=== PATIENT | female | born 1960 | race Caucasian/White ===

== ENCOUNTER 2016-09-11 19:22 | Inpatient (IN) | payer MEDICAID ==
[~2016-09-11] VITALS: Ht 157.5 cm; Wt 128.7 kg
[~2016-09-11 19:22] MED LIST: AMLO5TAB2 PO; ASPI-496 PO; ASPI-515 PO; ATOR80TA75 PO; CARV6.252 PO; CLOP75TA PO; ERGO500017 PO; FURO40TA6 PO; INSU100V10 SQ; INSU100V12 SQ; INSU100V13 SQ-INSULIN; ISOS30TA8 PO; LISI30TA4 PO; LOSA50TA6 PO; METO25TA35 PO; METO50TA82 PO; NITR0.4T8 SL; NPH,100V4 SQ-INSULIN; OMEP-110 PO; ONDA4TAB10 PO; OXYC1TAB8 PO; POTA20PA8 PO; SIMV5TAB5 PO
[2016-09-11 20:21] LABS: BLOOD UREA NITROGEN 33 mg/dL (7-18)
[2016-09-11 20:27] LABS: IS PT STATUS REG ER OR PRE ER? YES
[2016-09-11] MEDS ORDERED: HYDROmorphone 1 MG/ML, 1ML IM STA (20:40)
[2016-09-11] MEDS ORDERED: HYDROmorphone 1 MG/ML, 1ML ONE (20:51)
[2016-09-11] MEDS ORDERED: FUROSEMIDE 20 MG/2 ML IV ONE (22:30)
[2016-09-11] MEDS ORDERED: SODIUM CHLORIDE FLUSH 10ML SYR IVF ONE (22:30)
[2016-09-11] MEDS ORDERED: FUROSEMIDE 20 MG/2 ML ONE (23:00)
[2016-09-11] MEDS ORDERED: AMLO5TAB2 PO (23:05)
[2016-09-11] MEDS ORDERED: HUMALOG (23:07)
[2016-09-11] MEDS ORDERED: ESCI10TA10 PO (23:08)
[2016-09-11] MEDS ORDERED: FUROSEMIDE 40 MG/4 ML ONE (23:20)
[2016-09-11] MEDS ORDERED: NITROGLYCERIN 0.4 MG BOTTLE (25 TABS) SL PRN (23:30)
[2016-09-11] MEDS ORDERED: AMLODIPINE 5 MG TABLET PO SCH (23:30)
[2016-09-11] MEDS ORDERED: LORazepam 2 MG/ML, 1ML IVPush PRN (23:30)
[2016-09-11] MEDS ORDERED: GUAIFENESIN/DM 200-20MG, 10ML UDC PO PRN (23:30)
[2016-09-11] MEDS ORDERED: ONDANSETRON 2MG/ML, 2ML IVPush PRN (23:30)
[2016-09-11] MEDS ORDERED: FUROSEMIDE 40 MG/4 ML IV ONE (23:30)
[2016-09-12] VITALS (8 sets, daily range): BP systolic 96–189; BP diastolic 60–82
[2016-09-12] MEDS: HYDROmorphone 2 MG/ML, 1ML IVPush PRN ×5 (01:13→20:59)
[2016-09-12] MEDS: HEPARIN 5,000 UNITS/ML, 1ML SQ SCH ×3 (01:14→16:23)
[2016-09-12] MEDS: ERGOCALCIFEROL 50,000 UNIT CAPSULE PO SCH (01:14)
[2016-09-12 06:12] LABS: BLOOD UREA NITROGEN 35 mg/dL (7-18)
[2016-09-12 06:23] LABS: IS PT STATUS REG ER OR PRE ER? NO
[2016-09-12] MEDS: AMLODIPINE 5 MG TABLET PO SCH (07:48)
[2016-09-12] MEDS: ISOSORBIDE MONONITRATE ER 30 MG TABLET PO SCH (07:48)
[2016-09-12] MEDS: OMEPRAZOLE 20 MG CAPSULE.DR PO SCH ×2 (07:48→23:06)
[2016-09-12] MEDS: ASPIRIN 81 MG TABLET EC PO SCH (07:49)
[2016-09-12] MEDS: METOPROLOL TARTRATE 50 MG TABLET PO SCH ×2 (07:49→16:28)
[2016-09-12] MEDS: TEMPLATE NON-FORMULARY MED. (Escitalopram Oxalate** (Lexapro**) 10 MG) HOMEMEDPO SCH (09:00)
[2016-09-12] MEDS ORDERED: FUROSEMIDE 40 MG/4 ML IV SCH (09:00)
[2016-09-12] MEDS: INSULIN ASPART 100 UNITS/ML, PEN SQ-INSULIN SCH ×4 (09:19→20:49)
[2016-09-12] MEDS: INSULIN DETEMIR 100 UNITS/ML, PEN SQ-INSULIN SCH ×2 (09:20→15:56)
[2016-09-12 11:35] LABS: IS PT STATUS REG ER OR PRE ER? YES
[2016-09-12] MEDS: FUROSEMIDE 40 MG/4 ML IV SCH (18:14)
[2016-09-13 00:18] VITALS: BP 167/72
[2016-09-13] MEDS: HEPARIN 5,000 UNITS/ML, 1ML SQ SCH ×4 (00:19→22:45)
[2016-09-13] MEDS: HYDROmorphone 2 MG/ML, 1ML IVPush PRN ×4 (00:19→10:36)
[2016-09-13 06:42] VITALS: BP 164/71
[2016-09-13 06:49] LABS: ASPARTATE AMINO TRANSFERASE 15 U/L (15-37); BLOOD UREA NITROGEN 47 mg/dL (7-18)
[2016-09-13] MEDS: INSULIN ASPART 100 UNITS/ML, PEN SQ-INSULIN SCH ×4 (07:00→21:35)
[2016-09-13] MEDS: INSULIN DETEMIR 100 UNITS/ML, PEN SQ-INSULIN SCH (07:10)
[2016-09-13] MEDS: AMLODIPINE 5 MG TABLET PO SCH (07:21)
[2016-09-13] MEDS: METOPROLOL TARTRATE 50 MG TABLET PO SCH ×2 (07:22→16:15)
[2016-09-13] MEDS: ISOSORBIDE MONONITRATE ER 30 MG TABLET PO SCH (07:22)
[2016-09-13] MEDS: ASPIRIN 81 MG TABLET EC PO SCH (07:22)
[2016-09-13] MEDS: OMEPRAZOLE 20 MG CAPSULE.DR PO SCH ×2 (07:22→21:00)
[2016-09-13] MEDS: FUROSEMIDE 40 MG/4 ML IV SCH (07:22)
[2016-09-13] MEDS: TEMPLATE NON-FORMULARY MED. (Escitalopram Oxalate** (Lexapro**) 10 MG) HOMEMEDPO SCH (07:23)
[2016-09-13] MEDS ORDERED: POLYETHYLENE GLYCOL 17 GM PACKET NG PRN (11:00)
[2016-09-13] MEDS: CALCIUM CARBONATE 500 MG TAB.CHEW PO PRN (12:46)
[2016-09-13 13:15] VITALS: BP 138/68
[2016-09-13] MEDS ORDERED: LORazepam 2 MG/ML, 1ML IVPush PRN (14:00)
[2016-09-13] MEDS: HYDROmorphone 1 MG/ML, 1ML IV PRN ×3 (14:12→22:45)
[2016-09-13] MEDS: ESCITALOPRAM 10 MG HOMEMEDPO SCH (14:22)
[2016-09-13 16:20] VITALS: BP 164/72
[2016-09-13] MEDS: ALBUMIN HUMAN 25% 100 ML IV SCH (17:43)
[2016-09-13 21:00] VITALS: BP 165/71
[2016-09-13] MEDS: INSULIN HUMULIN 70/30, 3ML PEN SQ-INSULIN SCH (21:36)
[2016-09-14] MEDS: ALBUMIN HUMAN 25% 100 ML IV SCH ×3 (00:33→19:38)
[2016-09-14 02:50] VITALS: BP 157/62
[2016-09-14] MEDS: HYDROmorphone 1 MG/ML, 1ML IV PRN ×5 (03:00→21:07)
[2016-09-14 06:04] LABS: PTH INTACT INTERPRETATION ** Comment **
[2016-09-14 06:19] LABS: BLOOD UREA NITROGEN 54 mg/dL (7-18)
[2016-09-14 06:31] LABS: PATH.CAST-FLAG NOT PRESENT; SPERM-FLAG NOT PRESENT; SRC-FLAG NOT PRESENT; XTAL-FLAG NOT PRESENT; YLC-FLAG NOT PRESENT
[2016-09-14] MEDS: INSULIN ASPART 100 UNITS/ML, PEN SQ-INSULIN SCH ×4 (07:00→22:22)
[2016-09-14 07:06] LABS: PARATHYROID HORMONE INTACT 357.5 pg/mL (14-72)
[2016-09-14] MEDS: HEPARIN 5,000 UNITS/ML, 1ML SQ SCH ×2 (07:30→16:54)
[2016-09-14] MEDS: METOPROLOL TARTRATE 50 MG TABLET PO SCH ×2 (08:00→16:54)
[2016-09-14 09:00] VITALS: BP 159/82
[2016-09-14] MEDS: OMEPRAZOLE 20 MG CAPSULE.DR PO SCH ×2 (09:00→21:00)
[2016-09-14] MEDS: TEMPLATE NON-FORMULARY MED. (Escitalopram Oxalate** (Lexapro**) 10 MG) HOMEMEDPO SCH (09:00)
[2016-09-14] MEDS: INSULIN HUMULIN 70/30, 3ML PEN SQ-INSULIN SCH ×2 (09:00→22:22)
[2016-09-14] MEDS: ESCITALOPRAM 10 MG HOMEMEDPO SCH (09:50)
[2016-09-14] MEDS: ISOSORBIDE MONONITRATE ER 30 MG TABLET PO SCH (09:56)
[2016-09-14] MEDS: AMLODIPINE 5 MG TABLET PO SCH (09:56)
[2016-09-14] MEDS: ASPIRIN 81 MG TABLET EC PO SCH (09:56)
[2016-09-14] MEDS ORDERED: FUROSEMIDE 40 MG/4 ML IV ONE (12:00)
[2016-09-14 14:16] VITALS: BP 170/82
[2016-09-14 19:13] VITALS: BP 148/62
[2016-09-14] MEDS: FUROSEMIDE 40 MG/4 ML IV SCH (19:39)
[2016-09-15 01:20] VITALS: BP 171/70
[2016-09-15] MEDS: HYDROmorphone 1 MG/ML, 1ML IV PRN ×6 (01:20→23:08)
[2016-09-15] MEDS: HEPARIN 5,000 UNITS/ML, 1ML SQ SCH ×3 (01:20→17:34)
[2016-09-15] MEDS: ALBUMIN HUMAN 25% 100 ML IV SCH ×2 (03:38→11:28)
[2016-09-15 05:29] LABS: ASPARTATE AMINO TRANSFERASE 5 U/L (15-37); BLOOD UREA NITROGEN 59 mg/dL (7-18)
[2016-09-15] MEDS: INSULIN ASPART 100 UNITS/ML, PEN SQ-INSULIN SCH ×4 (07:00→21:28)
[2016-09-15 07:18] VITALS: BP 157/84
[2016-09-15] MEDS: FUROSEMIDE 40 MG/4 ML IV SCH ×3 (07:30→17:25)
[2016-09-15] MEDS: ESCITALOPRAM 10 MG HOMEMEDPO SCH (08:33)
[2016-09-15] MEDS: METOPROLOL TARTRATE 50 MG TABLET PO SCH ×2 (08:33→17:25)
[2016-09-15] MEDS: AMLODIPINE 5 MG TABLET PO SCH (08:34)
[2016-09-15] MEDS: ISOSORBIDE MONONITRATE ER 30 MG TABLET PO SCH (08:34)
[2016-09-15] MEDS: TEMPLATE NON-FORMULARY MED. (Escitalopram Oxalate** (Lexapro**) 10 MG) HOMEMEDPO SCH (08:34)
[2016-09-15] MEDS: ASPIRIN 81 MG TABLET EC PO SCH (08:34)
[2016-09-15] MEDS: OMEPRAZOLE 20 MG CAPSULE.DR PO SCH ×2 (08:38→21:00)
[2016-09-15] MEDS: INSULIN HUMULIN 70/30, 3ML PEN SQ-INSULIN SCH ×2 (08:40→21:28)
[2016-09-15 12:55] VITALS: BP 148/69
[2016-09-15] MEDS: CALCITRIOL 0.25 MCG CAPSULE PO SCH (12:57)
[2016-09-15] MEDS ORDERED: HYDROmorphone 2MG TABLET PO PRN (15:00)
[2016-09-15] MEDS: CEFTRIAXONE 1,000 MG in SODIUM CHLORIDE 0.9% 50 ML IV SCH (15:54)
[2016-09-15 18:52] VITALS: BP 148/67
[2016-09-16 01:19] VITALS: BP 193/71
[2016-09-16] MEDS: HYDROmorphone 1 MG/ML, 1ML IV PRN ×4 (05:10→23:29)
[2016-09-16 05:16] LABS: BLOOD UREA NITROGEN 67 mg/dL (7-18)
[2016-09-16] MEDS: HEPARIN 5,000 UNITS/ML, 1ML SQ SCH ×3 (05:17→21:43)
[2016-09-16] MEDS: INSULIN ASPART 100 UNITS/ML, PEN SQ-INSULIN SCH ×4 (07:00→21:00)
[2016-09-16 07:54] VITALS: BP 166/68
[2016-09-16] MEDS: OMEPRAZOLE 20 MG CAPSULE.DR PO SCH ×3 (08:30→21:00)
[2016-09-16] MEDS: ISOSORBIDE MONONITRATE ER 30 MG TABLET PO SCH (08:58)
[2016-09-16] MEDS: AMLODIPINE 5 MG TABLET PO SCH (08:58)
[2016-09-16] MEDS: METOPROLOL TARTRATE 50 MG TABLET PO SCH ×2 (08:59→16:27)
[2016-09-16] MEDS: FUROSEMIDE 40 MG/4 ML IV SCH ×2 (08:59→16:27)
[2016-09-16] MEDS: ASPIRIN 81 MG TABLET EC PO SCH (08:59)
[2016-09-16] MEDS: ESCITALOPRAM 10 MG HOMEMEDPO SCH (09:00)
[2016-09-16] MEDS: INSULIN HUMULIN 70/30, 3ML PEN SQ-INSULIN SCH ×2 (09:04→21:42)
[2016-09-16] MEDS: CALCIUM CARBONATE 500 MG TAB.CHEW PO PRN (09:06)
[2016-09-16] MEDS: CALCITRIOL 0.25 MCG CAPSULE PO SCH (09:07)
[2016-09-16] MEDS: IRON SUCROSE COMPLEX 100MG/5ML IV SCH (13:04)
[2016-09-16 15:19] VITALS: BP 152/78
[2016-09-16] MEDS: CEFTRIAXONE 1,000 MG in SODIUM CHLORIDE 0.9% 50 ML IV SCH (16:26)
[2016-09-16 18:48] VITALS: BP 134/57
[2016-09-17 01:19] VITALS: BP 162/65
[2016-09-17] MEDS: HEPARIN 5,000 UNITS/ML, 1ML SQ SCH ×3 (05:27→20:47)
[2016-09-17] MEDS: HYDROmorphone 1 MG/ML, 1ML IV PRN ×3 (05:30→17:25)
[2016-09-17 05:53] LABS: ASPARTATE AMINO TRANSFERASE 11 U/L (15-37); BLOOD UREA NITROGEN 67 mg/dL (7-18)
[2016-09-17 06:39] VITALS: BP 144/63
[2016-09-17] MEDS: INSULIN ASPART 100 UNITS/ML, PEN SQ-INSULIN SCH ×4 (08:08→20:58)
[2016-09-17] MEDS: CALCITRIOL 0.25 MCG CAPSULE PO SCH (08:11)
[2016-09-17] MEDS: METOPROLOL TARTRATE 50 MG TABLET PO SCH ×2 (08:11→17:24)
[2016-09-17] MEDS: AMLODIPINE 5 MG TABLET PO SCH (08:11)
[2016-09-17] MEDS: ESCITALOPRAM 10 MG HOMEMEDPO SCH (08:11)
[2016-09-17] MEDS: ASPIRIN 81 MG TABLET EC PO SCH (08:11)
[2016-09-17] MEDS: ISOSORBIDE MONONITRATE ER 30 MG TABLET PO SCH (08:11)
[2016-09-17] MEDS: INSULIN HUMULIN 70/30, 3ML PEN SQ-INSULIN SCH ×2 (08:11→20:59)
[2016-09-17] MEDS: OMEPRAZOLE 20 MG CAPSULE.DR PO SCH ×2 (08:11→20:47)
[2016-09-17] MEDS: FUROSEMIDE 40 MG/4 ML IV SCH ×2 (09:39→17:25)
[2016-09-17] MEDS: IRON SUCROSE COMPLEX 100MG/5ML IV SCH (09:40)
[2016-09-17 13:55] VITALS: BP 146/61
[2016-09-17] MEDS: CEFTRIAXONE 1,000 MG in SODIUM CHLORIDE 0.9% 100 ML IV SCH (15:56)
[2016-09-17 19:22] VITALS: BP 152/71
[2016-09-18] MEDS: HYDROmorphone 1 MG/ML, 1ML IV PRN ×4 (00:32→18:40)
[2016-09-18 02:21] VITALS: BP 162/72
[2016-09-18 05:34] LABS: BLOOD UREA NITROGEN 67 mg/dL (7-18)
[2016-09-18] MEDS: HEPARIN 5,000 UNITS/ML, 1ML SQ SCH ×3 (05:37→20:42)
[2016-09-18] MEDS: INSULIN ASPART 100 UNITS/ML, PEN SQ-INSULIN SCH ×4 (07:00→20:35)
[2016-09-18 07:33] VITALS: BP 179/68
[2016-09-18] MEDS: IRON SUCROSE COMPLEX 100MG/5ML IV SCH (09:26)
[2016-09-18] MEDS: FUROSEMIDE 40 MG/4 ML IV SCH ×2 (09:26→16:24)
[2016-09-18] MEDS: ISOSORBIDE MONONITRATE ER 30 MG TABLET PO SCH (09:30)
[2016-09-18] MEDS: ASPIRIN 81 MG TABLET EC PO SCH (09:31)
[2016-09-18] MEDS: METOPROLOL TARTRATE 50 MG TABLET PO SCH ×2 (09:31→16:24)
[2016-09-18] MEDS: CALCITRIOL 0.25 MCG CAPSULE PO SCH (09:31)
[2016-09-18] MEDS: AMLODIPINE 5 MG TABLET PO SCH (09:31)
[2016-09-18] MEDS: OMEPRAZOLE 20 MG CAPSULE.DR PO SCH ×2 (09:31→20:34)
[2016-09-18] MEDS: ESCITALOPRAM 10 MG HOMEMEDPO SCH (09:31)
[2016-09-18] MEDS: INSULIN HUMULIN 70/30, 3ML PEN SQ-INSULIN SCH ×2 (09:32→20:42)
[2016-09-18 14:38] VITALS: BP 122/71
[2016-09-18] MEDS: CEFTRIAXONE 1,000 MG in SODIUM CHLORIDE 0.9% 100 ML IV SCH (16:24)
[2016-09-18 20:02] VITALS: BP 151/63
[2016-09-19] MEDS: HYDROmorphone 1 MG/ML, 1ML IV PRN ×2 (00:37→06:42)
[2016-09-19 01:04] VITALS: BP 153/59
[2016-09-19] MEDS: CALCIUM CARBONATE 500 MG TAB.CHEW PO PRN (04:43)
[2016-09-19] MEDS: ERGOCALCIFEROL 50,000 UNIT CAPSULE PO SCH (04:43)
[2016-09-19] MEDS: HEPARIN 5,000 UNITS/ML, 1ML SQ SCH ×2 (04:43→12:34)
[2016-09-19 06:04] LABS: ASPARTATE AMINO TRANSFERASE 8 U/L (15-37); BLOOD UREA NITROGEN 65 mg/dL (7-18)
[2016-09-19 06:40] VITALS: BP 164/74
[2016-09-19] MEDS: INSULIN ASPART 100 UNITS/ML, PEN SQ-INSULIN SCH ×2 (07:00→11:00)
[2016-09-19] MEDS: METOPROLOL TARTRATE 50 MG TABLET PO SCH (08:45)
[2016-09-19] MEDS: ISOSORBIDE MONONITRATE ER 30 MG TABLET PO SCH (08:45)
[2016-09-19] MEDS: ASPIRIN 81 MG TABLET EC PO SCH (08:45)
[2016-09-19] MEDS: OMEPRAZOLE 20 MG CAPSULE.DR PO SCH (08:46)
[2016-09-19] MEDS: CALCITRIOL 0.25 MCG CAPSULE PO SCH (08:46)
[2016-09-19] MEDS: AMLODIPINE 5 MG TABLET PO SCH (08:46)
[2016-09-19] MEDS: FUROSEMIDE 40 MG/4 ML IV SCH (08:49)
[2016-09-19] MEDS: IRON SUCROSE COMPLEX 100MG/5ML IV SCH (08:51)
[2016-09-19] MEDS: ESCITALOPRAM 10 MG HOMEMEDPO SCH (09:00)
[2016-09-19] MEDS: INSULIN HUMULIN 70/30, 3ML PEN SQ-INSULIN SCH (09:11)
[2016-09-19] MEDS ORDERED: FURO-92 PO (12:06)
[2016-09-19] MEDS: CEFTRIAXONE 1,000 MG in SODIUM CHLORIDE 0.9% 100 ML IV SCH (13:10)
[2016-09-19 13:59] VITALS: BP 150/66
== END 2016-09-19 14:30 | disposition home or self-care (01) | DRG 291 ==
LOC: ED 21:34 → EDIP 22:14 → 3NE 09-12 00:15
PROVIDERS: ADMIT Internal Medicine; ATTEND Internal Medicine
DX: I13.0 Hypertensive heart and chronic kidney disease with heart failure and stage 1 through stage 4 chronic kidney disease, or unspecified chronic kidney disease (principal); E43 Unspecified severe protein-calorie malnutrition; I50.43 Acute on chronic combined systolic (congestive) and diastolic (congestive) heart failure; K76.7 Hepatorenal syndrome; N17.9 Acute kidney failure, unspecified; N18.4 Chronic kidney disease, stage 4 (severe); N25.81 Secondary hyperparathyroidism of renal origin; N39.0 Urinary tract infection, site not specified; Z68.43 Body mass index [BMI] 50.0-59.9, adult; E11.22 Type 2 diabetes mellitus with diabetic chronic kidney disease; E66.01 Morbid (severe) obesity due to excess calories; I25.10 Atherosclerotic heart disease of native coronary artery without angina pectoris; Z95.5 Presence of coronary angioplasty implant and graft; Z83.3 Family history of diabetes mellitus; Z82.49 Family history of ischemic heart disease and other diseases of the circulatory system; E78.5 Hyperlipidemia, unspecified; E55.9 Vitamin D deficiency, unspecified; N25.0 Renal osteodystrophy; F60.9 Personality disorder, unspecified; Z87.891 Personal history of nicotine dependence; D64.9 Anemia, unspecified; G89.29 Other chronic pain; Z88.0 Allergy status to penicillin; Z88.8 Allergy status to other drugs, medicaments and biological substances; R80.9 Proteinuria, unspecified; D63.8 Anemia in other chronic diseases classified elsewhere; E87.70 Fluid overload, unspecified; E11.21 Type 2 diabetes mellitus with diabetic nephropathy
CPT/HCPCS: 36415; 71010; 76770; 80048; 80053; 80069; 81001; 82040; 82306; 82310; 82330; 82570; 82728; 82962; 83036; 83540; 83550; 83735; 83880; 83970; 84100; 84156; 84439; 84443; 84484; 84550; 85025; 85610; 85730; 87205; 93005; 93970; 96372; 96374; C8929; J0696; J1170; J1644; J1756; J1815; J1940; J2405; P9047

== ENCOUNTER 2016-10-18 08:29 | Emergency (ER) | payer MEDICAID ==
[~2016-10-18] VITALS: Ht 157.5 cm; Wt 122.7 kg
[~2016-10-18 08:29] MED LIST changes: +ESCI10TA10 PO; +FURO-92 PO; +HUMALOG
[2016-10-18] MEDS ORDERED: SODIUM CHLORIDE 0.9% 1,000 ML IV ONE (09:07)
[2016-10-18 09:18] LABS: PATH.CAST-FLAG NOT PRESENT; SPERM-FLAG NOT PRESENT; SRC-FLAG NOT PRESENT; XTAL-FLAG NOT PRESENT; YLC-FLAG NOT PRESENT
[2016-10-18] MEDS ORDERED: ONDANSETRON 2MG/ML, 2ML ONE (09:21)
[2016-10-18] MEDS ORDERED: HYDROmorphone 1 MG/ML, 1ML ONE (09:21)
[2016-10-18] MEDS ORDERED: ONDANSETRON 2MG/ML, 2ML IVPush ONE (09:30)
[2016-10-18] MEDS ORDERED: SODIUM CHLORIDE FLUSH 10ML SYR IVF ONE (09:30)
[2016-10-18] MEDS ORDERED: HYDROmorphone 1 MG/ML, 1ML IVPush PRN (09:30)
[2016-10-18] MEDS ORDERED: CEFTRIAXONE 1,000 MG IV ONE (10:00)
[2016-10-18 10:21] LABS: BLOOD UREA NITROGEN 57 mg/dL (7-18)
[2016-10-18] MEDS ORDERED: SODIUM CHLORIDE 0.9% 1,000ML IVBOLUS ONE (11:00)
[2016-10-18] MEDS ORDERED: CEFTRIAXONE PMX 1GM/50ML 50 ML ONE (11:03)
[2016-10-18 12:14] VITALS: BP 134/52
== END 2016-10-18 12:17 | disposition home or self-care (01) ==
LOC: ED 10:06
DX: M54.5 Low back pain (principal); M54.6 Pain in thoracic spine; N20.0 Calculus of kidney; E11.22 Type 2 diabetes mellitus with diabetic chronic kidney disease; I13.0 Hypertensive heart and chronic kidney disease with heart failure and stage 1 through stage 4 chronic kidney disease, or unspecified chronic kidney disease; N18.9 Chronic kidney disease, unspecified; I50.9 Heart failure, unspecified; I25.10 Atherosclerotic heart disease of native coronary artery without angina pectoris; Z87.891 Personal history of nicotine dependence
CPT/HCPCS: 36415; 74176; 80048; 81001; 82040; 85025; 87086; 93005; 96361; 96374; 96375; 99285; J0696; J1170; J2405; J7030

== ENCOUNTER 2016-10-19 05:03 | Emergency (ER) | payer MEDICAID ==
[~2016-10-19] VITALS: Ht 157.5 cm; Wt 122.7 kg
[2016-10-19 05:05] VITALS: BP 200/84
[2016-10-19] MEDS ORDERED: HYDROmorphone 1 MG/ML, 1ML IVPush PRN (06:00)
[2016-10-19] MEDS ORDERED: SODIUM CHLORIDE FLUSH 10ML SYR IVF ONE (06:00)
[2016-10-19] MEDS ORDERED: ONDANSETRON 2MG/ML, 2ML IVPush ONE (06:00)
[2016-10-19] MEDS ORDERED: SODIUM CHLORIDE 0.9% 1,000ML IVBOLUS ONE (06:00)
[2016-10-19 06:35] LABS: ASPARTATE AMINO TRANSFERASE 13 U/L (15-37); BLOOD UREA NITROGEN 61 mg/dL (7-18)
== END 2016-10-19 06:49 | disposition home or self-care (01) ==
LOC: ED 05:38
DX: N30.90 Cystitis, unspecified without hematuria (principal); I10 Essential (primary) hypertension; E78.00 Pure hypercholesterolemia, unspecified; E11.9 Type 2 diabetes mellitus without complications; E78.5 Hyperlipidemia, unspecified; F17.210 Nicotine dependence, cigarettes, uncomplicated
CPT/HCPCS: 36415; 80053; 85025; 99284

== ENCOUNTER 2017-09-11 15:40 | Emergency (ER) | payer MEDICAID ==
[~2017-09-11] VITALS: Ht 157.5 cm; Wt 109.0 kg
[~2017-09-11 15:40] MED LIST changes: +ALPR0.254 PO; +ATOR-2 PO; -ATOR80TA75 PO; +CARV25TA12 PO; +ESCI20TA10 PO; +HUMALOG 70/30; +INSU100I13 SQ-INSULIN; -INSU100V10 SQ; +INSU100V11 SQ; +NITR0.4T SL; +NITR0.4T28 SL; -NITR0.4T8 SL; -NPH,100V4 SQ-INSULIN; +NPH,100V5 SQ-INSULIN; +POTA20PA25 PO; -POTA20PA8 PO; +PRAS10TA4 PO; +SEVE800T7 PO; +TICA90TA PO
[2017-09-11 16:44] LABS: BASOPHILS # (AUTO) 0.05 x10^3/uL (0-0.1); BASOPHILS % (AUTO) 1 % (0-1); EOSINOPHILS # (AUTO) 0.69 x10^3/uL (0-0.4); EOSINOPHILS % (AUTO) 9 % (1-7); LYMPHOCYTES # (AUTO) 1.14 x10^3/uL (1-3.4); LYMPHOCYTES % (AUTO) 15 % (22-44); MD NO; MEAN CORPUSCULAR VOLUME 91.2 fL (80-100); MEAN PLATELET VOLUME 7.8 fL (7.4-10.4); MONOCYTES % (AUTO) 8 % (2-9); NEUTROPHILS # (AUTO) 5.17 x10^3/uL (1.8-6.8); NEUTROPHILS % (AUTO) 68 % (42-75); PLATELET COUNT 347 x10^3/uL (130-400); RED BLOOD COUNT 3.21 x10^6/uL (3.82-5.3); RED CELL DISTRIBUTION WIDTH 13.8 % (9.6-15.2)
[2017-09-11 16:55] LABS: ALANINE AMINOTRANSFERASE 16 U/L (12-78); ALBUMIN 2.4 g/dL (3.4-5.0); ANION GAP 8 mmol/L (5-15); CALCIUM 7.6 mg/dL (8.5-10.1); CHLORIDE 101 mmol/L (98-107); CREATININE 4.47 mg/dL (0.55-1.02)
[2017-09-11 17:00] LABS: ALKALINE PHOSPHATASE 115 U/L (45-117); BILIRUBIN,TOTAL 0.6 mg/dL (0.2-1.0); TROPONIN I < 0.015 ng/mL (0.000-0.045)
[2017-09-11 18:27] VITALS: BP 168/74
[2017-09-11] MEDS ORDERED: CEFDINIR 300 MG CAPSULE ONE (18:28)
[2017-09-11] MEDS ORDERED: CEFDINIR 300 MG CAPSULE PO ONE (18:30)
== END 2017-09-11 18:41 | disposition home or self-care (01) ==
LOC: ED 18:00
DX: R55 Syncope and collapse (principal); E11.22 Type 2 diabetes mellitus with diabetic chronic kidney disease; I12.0 Hypertensive chronic kidney disease with stage 5 chronic kidney disease or end stage renal disease; N18.6 End stage renal disease; I25.10 Atherosclerotic heart disease of native coronary artery without angina pectoris; E78.00 Pure hypercholesterolemia, unspecified; E78.5 Hyperlipidemia, unspecified; Z87.891 Personal history of nicotine dependence; Z99.2 Dependence on renal dialysis; Z79.4 Long term (current) use of insulin
CPT/HCPCS: 36415; 80053; 84484; 85025; 86850; 86900; 93005; 99285

== ENCOUNTER 2017-11-27 02:43 | Inpatient (IN) | payer MEDICAID ==
[~2017-11-27] VITALS: Ht 157.5 cm; Wt 114.7 kg
[~2017-11-27 02:43] MED LIST changes: +CALC0.25 PO; +CEFD300C37 PO; +METH750T2 PO
[2017-11-27 03:22] LABS: BASOPHILS # (AUTO) 0.07 x10^3/uL (0-0.1); BASOPHILS % (AUTO) 1 % (0-1); EOSINOPHILS # (AUTO) 0.33 x10^3/uL (0-0.4); EOSINOPHILS % (AUTO) 5 % (1-7); LYMPHOCYTES # (AUTO) 1.56 x10^3/uL (1-3.4); LYMPHOCYTES % (AUTO) 22 % (22-44); MD NO; MEAN CORPUSCULAR HEMOGLOBIN 31.1 pg (27.0-34.8); MEAN CORPUSCULAR HGB CONC 34.7 g/dL (32.4-35.8); MEAN CORPUSCULAR VOLUME 89.4 fL (80-100); MEAN PLATELET VOLUME 7.8 fL (7.4-10.4); MONOCYTES % (AUTO) 8 % (2-9); NEUTROPHILS # (AUTO) 4.54 x10^3/uL (1.8-6.8); NEUTROPHILS % (AUTO) 64 % (42-75); PLATELET COUNT 271 x10^3/uL (130-400); RED BLOOD COUNT 2.82 x10^6/uL (3.82-5.3); RED CELL DISTRIBUTION WIDTH 15.4 % (9.6-15.2)
[2017-11-27] MEDS ORDERED: ASPIRIN 81 MG TABLET CHEW PO ONE (03:30)
[2017-11-27 03:32] LABS: ALBUMIN 3.4 g/dL (3.4-5.0); ANION GAP 9 mmol/L (5-15); CALCIUM 7.7 mg/dL (8.5-10.1); CHLORIDE 97 mmol/L (98-107); CREATININE 5.29 mg/dL (0.55-1.02)
[2017-11-27 03:36] LABS: TROPONIN I < 0.015 ng/mL (0.000-0.045)
[2017-11-27] MEDS ORDERED: ACETAMINOPHEN 500 MG TABLET PO ONE (05:00)
[2017-11-27] MEDS ORDERED: NITROGLYCERIN OINT 2%, 1GM TP ONE ×2 (05:21→05:30)
[2017-11-27 08:02] VITALS: BP 151/64
[2017-11-27] MEDS: ERGOCALCIFEROL 50,000 UNIT CAPSULE PO SCH ×2 (09:00→10:12)
[2017-11-27] MEDS ORDERED: POLYETHYLENE GLYCOL 17 GM PACKET PO PRN (09:00)
[2017-11-27] MEDS: ASPIRIN 81 MG TABLET EC PO SCH ×2 (09:00→10:11)
[2017-11-27] MEDS ORDERED: ONDANSETRON 2MG/ML, 2ML IVPush PRN (09:30)
[2017-11-27] MEDS ORDERED: NITROGLYCERIN 0.4 MG BOTTLE (25 TABS) SL PRN (09:30)
[2017-11-27] MEDS ORDERED: ACETAMINOPHEN 325 MG TABLET PO PRN (09:30)
[2017-11-27] MEDS: HEPARIN 5,000 UNITS/ML, 1ML SQ SCH ×3 (10:00→21:43)
[2017-11-27] MEDS: CITALOPRAM 20 MG TABLET PO SCH (10:11)
[2017-11-27] MEDS: SODIUM CHLORIDE FLUSH 10ML SYR IVF SCH ×2 (10:11→20:03)
[2017-11-27] MEDS: ISOSORBIDE MONONITRATE ER 30 MG TABLET PO SCH (10:11)
[2017-11-27] MEDS: CLOPIDOGREL 75 MG TABLET PO SCH (10:12)
[2017-11-27 10:44] LABS: TROPONIN I < 0.015 ng/mL (0.000-0.045)
[2017-11-27] MEDS: CALCITRIOL 0.25 MCG CAPSULE PO SCH (10:52)
[2017-11-27] MEDS: HYDROmorphone 2 MG/ML, 1ML IVPush PRN ×3 (11:08→20:03)
[2017-11-27] MEDS ORDERED: SEVELAMER HCL 800MG TABLET PO SCH ×2 (12:00→17:00)
[2017-11-27] MEDS: INSULIN LISPRO 100 UNITS/ML, PEN SQ-INSULIN SCH ×3 (13:36→21:38)
[2017-11-27 14:30] VITALS: BP 143/74
[2017-11-27 16:31] LABS: TROPONIN I < 0.015 ng/mL (0.000-0.045)
[2017-11-27] MEDS: SEVELAMER CARBONATE 800MG TAB PO SCH (16:49)
[2017-11-27 19:12] VITALS: BP 154/71
[2017-11-27] MEDS ORDERED: INSULIN GLARGINE 100 UNITS/ML, PEN SQ-INSULIN SCH (21:00)
[2017-11-27] MEDS ORDERED: ATORVASTATIN 80 MG TABLET PO SCH (21:00)
[2017-11-28] MEDS: HYDROmorphone 2 MG/ML, 1ML IVPush PRN ×3 (00:13→08:12)
[2017-11-28 00:22] VITALS: BP 166/72
[2017-11-28] MEDS ORDERED: METOPROLOL SUCCINATE 25 MG TAB.ER.24H PO SCH (06:00)
[2017-11-28] MEDS: SEVELAMER CARBONATE 800MG TAB PO SCH ×3 (08:09→17:55)
[2017-11-28] MEDS: SODIUM CHLORIDE FLUSH 10ML SYR IVF SCH (08:10)
[2017-11-28] MEDS: INSULIN LISPRO 100 UNITS/ML, PEN SQ-INSULIN SCH ×3 (08:10→16:00)
[2017-11-28] MEDS: LISINOPRIL 10 MG TABLET PO SCH ×2 (09:00→11:15)
[2017-11-28] MEDS: HEPARIN 5,000 UNITS/ML, 1ML SQ SCH ×2 (10:00→11:15)
[2017-11-28 10:55] VITALS: BP 185/81
[2017-11-28] MEDS ORDERED: HYDROmorphone 2MG TABLET PO ONE (11:00)
[2017-11-28] MEDS: CITALOPRAM 20 MG TABLET PO SCH (11:14)
[2017-11-28] MEDS: CALCITRIOL 0.25 MCG CAPSULE PO SCH (11:14)
[2017-11-28] MEDS: ISOSORBIDE MONONITRATE ER 30 MG TABLET PO SCH (11:14)
[2017-11-28] MEDS: CLOPIDOGREL 75 MG TABLET PO SCH (11:15)
[2017-11-28] MEDS: ASPIRIN 81 MG TABLET EC PO SCH (11:15)
[2017-11-28 14:31] VITALS: BP 144/71
== END 2017-11-28 18:05 | disposition home or self-care (01) | DRG 313 ==
LOC: ED 04:01 → EDIP 06:07 → 5SO 07:18 → 3NW 18:00
PROVIDERS: ADMIT Hospitalist; ATTEND Hospitalist
PROC: 5A1D70Z Performance of Urinary Filtration, Intermittent, Less than 6 Hours Per Day (ICD-10-PCS; principal; 2017-11-28)
DX: R07.89 Other chest pain (principal); I50.21 Acute systolic (congestive) heart failure; N18.6 End stage renal disease; E87.1 Hypo-osmolality and hyponatremia; I13.2 Hypertensive heart and chronic kidney disease with heart failure and with stage 5 chronic kidney disease, or end stage renal disease; D63.1 Anemia in chronic kidney disease; E11.22 Type 2 diabetes mellitus with diabetic chronic kidney disease; E11.65 Type 2 diabetes mellitus with hyperglycemia; E78.00 Pure hypercholesterolemia, unspecified; E78.5 Hyperlipidemia, unspecified; F41.9 Anxiety disorder, unspecified; G89.29 Other chronic pain; K59.00 Constipation, unspecified; I25.10 Atherosclerotic heart disease of native coronary artery without angina pectoris; Z99.2 Dependence on renal dialysis; I25.2 Old myocardial infarction; Z79.4 Long term (current) use of insulin; Z79.82 Long term (current) use of aspirin; Z79.899 Other long term (current) drug therapy; Z86.73 Personal history of transient ischemic attack (TIA), and cerebral infarction without residual deficits; Z87.442 Personal history of urinary calculi; Z87.440 Personal history of urinary (tract) infections; Z90.710 Acquired absence of both cervix and uterus; Z95.5 Presence of coronary angioplasty implant and graft; Z88.0 Allergy status to penicillin; Z88.8 Allergy status to other drugs, medicaments and biological substances; Z88.6 Allergy status to analgesic agent; Z88.5 Allergy status to narcotic agent
CPT/HCPCS: 36415; 71045; 80048; 82040; 82962; 84484; 85025; 93005; 99285; J1170; J1644; J1815

== ENCOUNTER 2017-12-07 14:42 | Inpatient (IN) | payer MEDICAID ==
[~2017-12-07] VITALS: Ht 157.5 cm; Wt 122.0 kg
[2017-12-07] MEDS ORDERED: HYDROmorphone 2 MG/ML, 1ML IVPush PRN (16:30)
[2017-12-07] MEDS ORDERED: SODIUM CHLORIDE FLUSH 10ML SYR IVF ONE (16:30)
[2017-12-07] MEDS ORDERED: VANCOMYCIN 1,500 MG in SODIUM CHLORIDE 0.9% 250 ML IV ONE (16:30)
[2017-12-07] MEDS ORDERED: VANCOMYCIN PER PHARMACY MC ONE (16:30)
[2017-12-07 17:04] LABS: BASOPHILS # (AUTO) 0.02 x10^3/uL (0-0.1); BASOPHILS % (AUTO) 0 % (0-1); EOSINOPHILS # (AUTO) 0.76 x10^3/uL (0-0.4); EOSINOPHILS % (AUTO) 11 % (1-7); LYMPHOCYTES # (AUTO) 1.41 x10^3/uL (1-3.4); LYMPHOCYTES % (AUTO) 20 % (22-44); MD NO; MEAN CORPUSCULAR HEMOGLOBIN 29.5 pg (27.0-34.8); MEAN CORPUSCULAR HGB CONC 32.8 g/dL (32.4-35.8); MEAN CORPUSCULAR VOLUME 89.8 fL (80-100); MEAN PLATELET VOLUME 7.6 fL (7.4-10.4); MONOCYTES # (AUTO) 0.45 x10^3/uL (0.2-0.8); MONOCYTES % (AUTO) 6 % (2-9); NEUTROPHILS # (AUTO) 4.49 x10^3/uL (1.8-6.8); NEUTROPHILS % (AUTO) 63 % (42-75); PLATELET COUNT 383 x10^3/uL (130-400); RED BLOOD COUNT 3.16 x10^6/uL (3.82-5.3); RED CELL DISTRIBUTION WIDTH 15.2 % (9.6-15.2)
[2017-12-07 17:05] LABS: HCT (SEDRATE) 28.4 % (34.6-47.8)
[2017-12-07] MEDS ORDERED: HYDROmorphone 2 MG/ML, 1ML ONE (17:10)
[2017-12-07 17:13] LABS: INTERNATIONAL NORMALIZED RATIO 0.97 (0.93-1.1)
[2017-12-07 17:15] LABS: ALBUMIN 3.3 g/dL (3.4-5.0); ANION GAP 8 mmol/L (5-15); C-REACTIVE PROTEIN, QUANT 0.28 mg/dL (0.02-0.49); CALCIUM 7.9 mg/dL (8.5-10.1); CHLORIDE 103 mmol/L (98-107); CREATININE 4.91 mg/dL (0.55-1.02)
[2017-12-07] MEDS ORDERED: LABETALOL 5MG/ML, 20ML IVPush ONE (17:30)
[2017-12-07] MEDS ORDERED: LABETALOL 5MG/ML, 20ML ONE (17:38)
[2017-12-07] MEDS ORDERED: INSU100I7 SQ-INSULIN (17:50)
[2017-12-07] MEDS ORDERED: NITROGLYCERIN 0.4 MG BOTTLE (25 TABS) SL PRN (18:30)
[2017-12-07] MEDS ORDERED: BISACODYL 10 MG SUPP PR PRN (18:30)
[2017-12-07] MEDS ORDERED: ERGOCALCIFEROL 50,000 UNIT CAPSULE PO SCH (18:30)
[2017-12-07] MEDS ORDERED: SEVELAMER HCL 800MG TABLET PO SCH (18:30)
[2017-12-07] MEDS ORDERED: POLYETHYLENE GLYCOL 17 GM PACKET PO PRN (18:30)
[2017-12-07] MEDS ORDERED: hydrALAzine 20 MG/ML, 1ML IVPush PRN (18:30)
[2017-12-07] MEDS ORDERED: ACETAMINOPHEN 325 MG TABLET PO PRN (18:30)
[2017-12-07] MEDS ORDERED: VANCOMYCIN PER PHARMACY MC PRN (18:30)
[2017-12-07] MEDS: SEVELAMER CARBONATE 800MG TAB PO SCH (19:00)
[2017-12-07] MEDS ORDERED: PHARMACOKINETIC MONITORING MC PRN (19:30)
[2017-12-07] MEDS ORDERED: PHARMACOKINETIC CONSULTATION MC ONE (19:30)
[2017-12-07] MEDS: HEPARIN 5,000 UNITS/ML, 1ML SQ SCH (20:42)
[2017-12-07 20:45] VITALS: BP 170/80
[2017-12-07] MEDS: ATORVASTATIN 80 MG TABLET PO SCH (21:39)
[2017-12-07] MEDS: SODIUM CHLORIDE FLUSH 10ML SYR IVF SCH (21:39)
[2017-12-07] MEDS: INSULIN LISPRO 100 UNITS/ML, PEN SQ-INSULIN SCH (22:36)
[2017-12-08 02:00] VITALS: BP 155/79
[2017-12-08] MEDS ORDERED: TEMAZEPAM 15 MG CAPSULE PO PRN (02:30)
[2017-12-08] MEDS: HEPARIN 5,000 UNITS/ML, 1ML SQ SCH ×3 (05:10→21:42)
[2017-12-08 05:43] LABS: BASOPHILS # (AUTO) 0.03 x10^3/uL (0-0.1); BASOPHILS % (AUTO) 1 % (0-1); EOSINOPHILS % (AUTO) 12 % (1-7); LYMPHOCYTES % (AUTO) 18 % (22-44); MD NO; MEAN CORPUSCULAR HEMOGLOBIN 29.7 pg (27.0-34.8); MEAN CORPUSCULAR HGB CONC 33.2 g/dL (32.4-35.8); MEAN CORPUSCULAR VOLUME 89.4 fL (80-100); MEAN PLATELET VOLUME 7.6 fL (7.4-10.4); MONOCYTES # (AUTO) 0.43 x10^3/uL (0.2-0.8); MONOCYTES % (AUTO) 6 % (2-9); NEUTROPHILS # (AUTO) 4.19 x10^3/uL (1.8-6.8); NEUTROPHILS % (AUTO) 63 % (42-75); PLATELET COUNT 366 x10^3/uL (130-400)
[2017-12-08 05:54] LABS: ANION GAP 7 mmol/L (5-15); CALCIUM 8.3 mg/dL (8.5-10.1); CHLORIDE 106 mmol/L (98-107)
[2017-12-08 05:58] LABS: ALANINE AMINOTRANSFERASE 13 U/L (12-78); ALKALINE PHOSPHATASE 100 U/L (45-117); BILIRUBIN,TOTAL 0.6 mg/dL (0.2-1.0); CREATININE 5.08 mg/dL (0.55-1.02); TOTAL PROTEIN 6.4 g/dL (6.4-8.2)
[2017-12-08 07:57] VITALS: BP 152/74
[2017-12-08] MEDS: ISOSORBIDE MONONITRATE ER 30 MG TABLET PO SCH (08:17)
[2017-12-08] MEDS: SENNA/DOCUSATE TABLET PO SCH (08:17)
[2017-12-08] MEDS: ASPIRIN 81 MG TABLET EC PO SCH (09:59)
[2017-12-08] MEDS: CITALOPRAM 20 MG TABLET PO SCH (09:59)
[2017-12-08] MEDS: CLOPIDOGREL 75 MG TABLET PO SCH (09:59)
[2017-12-08] MEDS: SEVELAMER CARBONATE 800MG TAB PO SCH ×3 (09:59→16:43)
[2017-12-08] MEDS: INSULIN LISPRO 100 UNITS/ML, PEN SQ-INSULIN SCH ×4 (10:01→21:43)
[2017-12-08] MEDS: SODIUM CHLORIDE FLUSH 10ML SYR IVF SCH ×2 (10:03→21:42)
[2017-12-08] MEDS ORDERED: HYDROmorphone 1 MG/ML, 1ML IV PRN (11:00)
[2017-12-08] MEDS ORDERED: HYDROmorphone 2 MG/ML, 1ML ONE (12:47)
[2017-12-08 13:16] VITALS: BP 149/78
[2017-12-08 21:40] VITALS: BP 169/82
[2017-12-08] MEDS: ATORVASTATIN 80 MG TABLET PO SCH (21:42)
[2017-12-08] MEDS: HYDROmorphone 2 MG/ML, 1ML IV PRN (21:42)
[2017-12-09] MEDS: HYDROmorphone 2 MG/ML, 1ML IV PRN ×8 (00:50→23:47)
[2017-12-09 02:00] VITALS: BP 146/69
[2017-12-09] MEDS: HEPARIN 5,000 UNITS/ML, 1ML SQ SCH ×3 (05:21→20:43)
[2017-12-09 05:35] LABS: BASOPHILS # (AUTO) 0.02 x10^3/uL (0-0.1); BASOPHILS % (AUTO) 0 % (0-1); EOSINOPHILS # (AUTO) 0.94 x10^3/uL (0-0.4); EOSINOPHILS % (AUTO) 15 % (1-7); LYMPHOCYTES # (AUTO) 1.73 x10^3/uL (1-3.4); LYMPHOCYTES % (AUTO) 28 % (22-44); MD NO; MEAN CORPUSCULAR HEMOGLOBIN 29.6 pg (27.0-34.8); MEAN CORPUSCULAR HGB CONC 32.7 g/dL (32.4-35.8); MEAN CORPUSCULAR VOLUME 90.7 fL (80-100); MEAN PLATELET VOLUME 7.5 fL (7.4-10.4); MONOCYTES # (AUTO) 0.46 x10^3/uL (0.2-0.8); MONOCYTES % (AUTO) 7 % (2-9); NEUTROPHILS # (AUTO) 3.13 x10^3/uL (1.8-6.8); NEUTROPHILS % (AUTO) 50 % (42-75); PLATELET COUNT 352 x10^3/uL (130-400); RED BLOOD COUNT 3.16 x10^6/uL (3.82-5.3); RED CELL DISTRIBUTION WIDTH 15.2 % (9.6-15.2)
[2017-12-09 05:48] LABS: ALBUMIN 3.3 g/dL (3.4-5.0); ANION GAP 8 mmol/L (5-15); CALCIUM 8.1 mg/dL (8.5-10.1); CHLORIDE 102 mmol/L (98-107)
[2017-12-09 05:56] LABS: % IRON SATURATION 21 % (20-55); ALANINE AMINOTRANSFERASE 16 U/L (12-78); ALKALINE PHOSPHATASE 103 U/L (45-117); BILIRUBIN,TOTAL 0.5 mg/dL (0.2-1.0); CREATININE 4.06 mg/dL (0.55-1.02); IRON LEVEL 65 mcg/dL (50-170); TOTAL IRON BINDING CAPACITY 310 mcg/dL (250-450); TOTAL PROTEIN 6.8 g/dL (6.4-8.2)
[2017-12-09 07:30] VITALS: BP 148/74
[2017-12-09] MEDS: SEVELAMER CARBONATE 800MG TAB PO SCH ×3 (08:00→17:29)
[2017-12-09] MEDS ORDERED: HYDROmorphone 2 MG/ML, 1ML ONE ×2 (08:07→12:35)
[2017-12-09] MEDS: INSULIN LISPRO 100 UNITS/ML, PEN SQ-INSULIN SCH ×4 (08:20→20:46)
[2017-12-09] MEDS: SODIUM CHLORIDE FLUSH 10ML SYR IVF SCH ×2 (09:00→20:43)
[2017-12-09] MEDS ORDERED: OXYcodone 5 MG/5 ML ORAL.SOL UDC PO PRN ×2 (10:30→12:30)
[2017-12-09] MEDS ORDERED: HYDROcodone/APAP 7.5-325MG/15ML UDC PO PRN (10:30)
[2017-12-09] MEDS ORDERED: ONDANSETRON ODT 8 MG PO PRN ×2 (10:30→12:30)
[2017-12-09] MEDS ORDERED: ACETAMINOPHEN 325 MG TABLET PO PRN ×2 (10:30→12:30)
[2017-12-09] MEDS ORDERED: FENTANYL PF 100 MCG/2ML IV PRN (10:30)
[2017-12-09] MEDS ORDERED: LABETALOL 5MG/ML, 20ML IV PRN (10:30)
[2017-12-09] MEDS ORDERED: ONDANSETRON 2MG/ML, 2ML IV PRN ×2 (10:30→12:30)
[2017-12-09] MEDS ORDERED: PHENYLEPHRINE 10 MG/ML ONE (11:10)
[2017-12-09] MEDS ORDERED: PROPOFOL 10 MG/ML, 20ML ONE (11:10)
[2017-12-09] MEDS ORDERED: EPHEDRINE 50 MG/ML, 1ML ONE (11:10)
[2017-12-09] MEDS ORDERED: LORazepam 2 MG/ML, 1ML ONE (12:17)
[2017-12-09] MEDS ORDERED: LORazepam 2 MG/ML, 1ML IVPush PRN (12:30)
[2017-12-09] MEDS ORDERED: PROMETHAZINE 25 MG/ML, 1ML IV PRN (12:30)
[2017-12-09] MEDS ORDERED: HYDROmorphone 1 MG/ML, 1ML IV PRN (12:30)
[2017-12-09 13:46] VITALS: BP 145/78
[2017-12-09] MEDS ORDERED: IRON SUCROSE COMPLEX 100MG/5ML IV SCH (16:00)
[2017-12-09] MEDS: CITALOPRAM 20 MG TABLET PO SCH (17:30)
[2017-12-09] MEDS: SENNA/DOCUSATE TABLET PO SCH (17:30)
[2017-12-09] MEDS: CLOPIDOGREL 75 MG TABLET PO SCH (17:30)
[2017-12-09] MEDS: ISOSORBIDE MONONITRATE ER 30 MG TABLET PO SCH (17:30)
[2017-12-09] MEDS: ASPIRIN 81 MG TABLET EC PO SCH (17:30)
[2017-12-09] MEDS ORDERED: VANCOMYCIN 1,800 MG in SODIUM CHLORIDE 0.9% 250 ML IV ONE (18:00)
[2017-12-09 20:00] VITALS: BP 99/66
[2017-12-09] MEDS: ATORVASTATIN 80 MG TABLET PO SCH (20:44)
[2017-12-10 02:00] VITALS: BP 110/82
[2017-12-10] MEDS: HYDROmorphone 2 MG/ML, 1ML IV PRN ×4 (03:05→12:25)
[2017-12-10] MEDS: ONDANSETRON 2MG/ML, 2ML IVPush PRN ×2 (05:27→13:55)
[2017-12-10] MEDS: HEPARIN 5,000 UNITS/ML, 1ML SQ SCH ×2 (05:28→12:45)
[2017-12-10 06:07] LABS: ALBUMIN 3.2 g/dL (3.4-5.0); CHLORIDE 99 mmol/L (98-107)
[2017-12-10 06:09] LABS: ANION GAP 6 mmol/L (5-15); CREATININE 3.73 mg/dL (0.55-1.02)
[2017-12-10 06:12] LABS: BASOPHILS # (AUTO) 0.03 x10^3/uL (0-0.1); BASOPHILS % (AUTO) 1 % (0-1); EOSINOPHILS # (AUTO) 0.81 x10^3/uL (0-0.4); EOSINOPHILS % (AUTO) 12 % (1-7); LYMPHOCYTES # (AUTO) 1.57 x10^3/uL (1-3.4); LYMPHOCYTES % (AUTO) 23 % (22-44); MD NO; MEAN CORPUSCULAR HEMOGLOBIN 30.8 pg (27.0-34.8); MEAN CORPUSCULAR HGB CONC 34.3 g/dL (32.4-35.8); MEAN CORPUSCULAR VOLUME 89.6 fL (80-100); MEAN PLATELET VOLUME 7.6 fL (7.4-10.4); MONOCYTES # (AUTO) 0.53 x10^3/uL (0.2-0.8); MONOCYTES % (AUTO) 8 % (2-9); NEUTROPHILS # (AUTO) 4.05 x10^3/uL (1.8-6.8); NEUTROPHILS % (AUTO) 58 % (42-75); PLATELET COUNT 298 x10^3/uL (130-400); RED BLOOD COUNT 2.77 x10^6/uL (3.82-5.3); RED CELL DISTRIBUTION WIDTH 15.1 % (9.6-15.2)
[2017-12-10 08:56] VITALS: BP 126/73
[2017-12-10] MEDS: SODIUM CHLORIDE FLUSH 10ML SYR IVF SCH (09:28)
[2017-12-10] MEDS: CITALOPRAM 20 MG TABLET PO SCH (09:28)
[2017-12-10] MEDS: SEVELAMER CARBONATE 800MG TAB PO SCH ×2 (09:28→12:02)
[2017-12-10] MEDS: ISOSORBIDE MONONITRATE ER 30 MG TABLET PO SCH (09:29)
[2017-12-10] MEDS: ASPIRIN 81 MG TABLET EC PO SCH (09:29)
[2017-12-10] MEDS: SENNA/DOCUSATE TABLET PO SCH (09:29)
[2017-12-10] MEDS ORDERED: SULF1TAB24 PO (09:33)
[2017-12-10] MEDS: INSULIN LISPRO 100 UNITS/ML, PEN SQ-INSULIN SCH ×2 (09:33→12:02)
[2017-12-10] MEDS: CLOPIDOGREL 75 MG TABLET PO SCH (09:35)
== END 2017-12-10 15:56 | disposition home health service (06) | DRG 602 ==
LOC: ED 17:44 → EDIP 17:45 → ED 18:17 → 4WST 18:37
PROVIDERS: ADMIT Internal Medicine; ATTEND Internal Medicine
PROC: 5A1D70Z Performance of Urinary Filtration, Intermittent, Less than 6 Hours Per Day (ICD-10-PCS; 2017-12-08)
PROC: 5A1D70Z Performance of Urinary Filtration, Intermittent, Less than 6 Hours Per Day (ICD-10-PCS; principal; 2017-12-09 11:00)
DX: L03.116 Cellulitis of left lower limb (principal); N18.6 End stage renal disease; E44.1 Mild protein-calorie malnutrition; Z68.42 Body mass index [BMI] 45.0-49.9, adult; I69.354 Hemiplegia and hemiparesis following cerebral infarction affecting left non-dominant side; D62 Acute posthemorrhagic anemia; I12.0 Hypertensive chronic kidney disease with stage 5 chronic kidney disease or end stage renal disease; I16.0 Hypertensive urgency; E11.621 Type 2 diabetes mellitus with foot ulcer; D63.1 Anemia in chronic kidney disease; E11.51 Type 2 diabetes mellitus with diabetic peripheral angiopathy without gangrene; N25.0 Renal osteodystrophy; E11.22 Type 2 diabetes mellitus with diabetic chronic kidney disease; E66.01 Morbid (severe) obesity due to excess calories; E78.5 Hyperlipidemia, unspecified; F12.90 Cannabis use, unspecified, uncomplicated; F32.9 Major depressive disorder, single episode, unspecified; F41.9 Anxiety disorder, unspecified; G89.29 Other chronic pain; I25.10 Atherosclerotic heart disease of native coronary artery without angina pectoris; K59.00 Constipation, unspecified; L97.529 Non-pressure chronic ulcer of other part of left foot with unspecified severity; Z79.02 Long term (current) use of antithrombotics/antiplatelets; Z79.4 Long term (current) use of insulin; Z79.82 Long term (current) use of aspirin; Z82.49 Family history of ischemic heart disease and other diseases of the circulatory system; Z87.440 Personal history of urinary (tract) infections; Z90.710 Acquired absence of both cervix and uterus; Z95.5 Presence of coronary angioplasty implant and graft; Z99.2 Dependence on renal dialysis; Z90.722 Acquired absence of ovaries, bilateral
CPT/HCPCS: 36415; 80048; 80053; 80069; 80202; 82040; 82306; 82728; 82962; 83036; 83540; 83550; 83735; 83970; 84100; 84550; 85025; 85610; 85651; 86140; 86704; 86706; 86803; 87340; 93005; 93922; 93925; 93970; 96365; 96375; 99285; J1170; J1644; J1756; J2405; J2704; J3370; G0365; J1815; J2060; J2370; J7050

== ENCOUNTER 2017-12-12 11:20 | Emergency (ER) | payer MEDICAID ==
[~2017-12-12 11:20] MED LIST changes: +INSU100I7 SQ-INSULIN; +SULF1TAB24 PO
[2017-12-12 11:25] VITALS: BP 190/87
[2017-12-12] MEDS ORDERED: ACETAMINOPHEN 500 MG TABLET ONE (11:53)
[2017-12-12] MEDS ORDERED: ACETAMINOPHEN 500 MG TABLET PO ONE (12:00)
[2017-12-12 12:34] LABS: BASOPHILS # (AUTO) 0.04 x10^3/uL (0-0.1); BASOPHILS % (AUTO) 1 % (0-1); EOSINOPHILS # (AUTO) 0.91 x10^3/uL (0-0.4); EOSINOPHILS % (AUTO) 11 % (1-7); LYMPHOCYTES # (AUTO) 1.48 x10^3/uL (1-3.4); LYMPHOCYTES % (AUTO) 18 % (22-44); MD NO; MEAN CORPUSCULAR HEMOGLOBIN 29.4 pg (27.0-34.8); MEAN CORPUSCULAR VOLUME 89.3 fL (80-100); MEAN PLATELET VOLUME 7.5 fL (7.4-10.4); MONOCYTES # (AUTO) 0.59 x10^3/uL (0.2-0.8); MONOCYTES % (AUTO) 7 % (2-9); NEUTROPHILS # (AUTO) 5.24 x10^3/uL (1.8-6.8); NEUTROPHILS % (AUTO) 64 % (42-75); PLATELET COUNT 326 x10^3/uL (130-400); RED BLOOD COUNT 2.84 x10^6/uL (3.82-5.3); RED CELL DISTRIBUTION WIDTH 14.8 % (9.6-15.2)
[2017-12-12 12:44] LABS: ALBUMIN 3.5 g/dL (3.4-5.0); ANION GAP 11 mmol/L (5-15); CHLORIDE 100 mmol/L (98-107); CREATININE 6.05 mg/dL (0.55-1.02)
== END 2017-12-12 13:13 | disposition home or self-care (01) ==
LOC: ED 13:07
DX: E11.621 Type 2 diabetes mellitus with foot ulcer (principal); L97.421 Non-pressure chronic ulcer of left heel and midfoot limited to breakdown of skin; I11.0 Hypertensive heart disease with heart failure; I50.9 Heart failure, unspecified
CPT/HCPCS: 36415; 80048; 82040; 85025; 99285

== ENCOUNTER 2018-03-26 22:25 | Inpatient (IN) | payer MEDICARE, MEDICAID ==
[~2018-03-26] VITALS: Ht 167.6 cm; Wt 106.1 kg
[~2018-03-26 22:25] MED LIST changes: +AMLO-150 PO; -AMLO5TAB2 PO; +CLOP75TA52 PO; +HUM100VI6 SQ; +INSU100C SQ-INSULIN; +INSU100V5 SQ-INSULIN; -LOSA50TA6 PO; +LOSA50TA7 PO
[2018-03-26] MEDS ORDERED: MORPHINE SULFATE 4 MG/ML, 1ML IVPush PRN (22:30)
[2018-03-26] MEDS ORDERED: ASPIRIN 81 MG TABLET CHEW PO ONE (22:30)
[2018-03-26] MEDS ORDERED: SODIUM CHLORIDE FLUSH 10ML SYR IVF ONE (22:30)
[2018-03-26] MEDS ORDERED: NITROGLYCERIN OINT 2%, 1GM TP ONE ×2 (22:30→22:40)
[2018-03-26] MEDS ORDERED: ASPIRIN 81 MG TABLET CHEW ONE (22:40)
[2018-03-26 23:15] LABS: BASOPHILS # (AUTO) 0.03 x10^3/uL (0-0.1); BASOPHILS % (AUTO) 0 % (0-1); EOSINOPHILS # (AUTO) 0.73 x10^3/uL (0-0.4); EOSINOPHILS % (AUTO) 10 % (1-7); LYMPHOCYTES # (AUTO) 1.71 x10^3/uL (1-3.4); LYMPHOCYTES % (AUTO) 24 % (22-44); MD NO; MEAN CORPUSCULAR HEMOGLOBIN 31.9 pg (27.0-34.8); MEAN CORPUSCULAR HGB CONC 34.7 g/dL (32.4-35.8); MEAN CORPUSCULAR VOLUME 91.7 fL (80-100); MEAN PLATELET VOLUME 7.5 fL (7.4-10.4); MONOCYTES # (AUTO) 0.37 x10^3/uL (0.2-0.8); MONOCYTES % (AUTO) 5 % (2-9); NEUTROPHILS # (AUTO) 4.33 x10^3/uL (1.8-6.8); NEUTROPHILS % (AUTO) 60 % (42-75); PLATELET COUNT 283 x10^3/uL (130-400); RED BLOOD COUNT 2.66 x10^6/uL (3.82-5.3)
[2018-03-26 23:24] LABS: ALANINE AMINOTRANSFERASE 16 U/L (12-78); ALBUMIN 3.5 g/dL (3.4-5.0); ANION GAP 9 mmol/L (5-15); CALCIUM 8.4 mg/dL (8.5-10.1); CHLORIDE 106 mmol/L (98-107); CREATININE 4.87 mg/dL (0.55-1.02)
[2018-03-26 23:28] LABS: ALKALINE PHOSPHATASE 116 U/L (45-117); BILIRUBIN,TOTAL 0.4 mg/dL (0.2-1.0)
[2018-03-26 23:34] LABS: PROTHROMBIN TIME 10.6 Seconds (9.6-11.5)
[2018-03-27] MEDS ORDERED: PANTOPRAZOLE 40 MG IV ONE
[2018-03-27] MEDS ORDERED: SODIUM CHLORIDE FLUSH 10ML SYR IVF ONE
[2018-03-27] MEDS: PANTOPRAZOLE 40 MG IV IVPush ONE ×2 (00:04→01:23)
[2018-03-27] MEDS: PANTOPRAZOLE 80 MG in SODIUM CHLORIDE 0.9% 100 ML IV SCH ×2 (00:04→01:23)
[2018-03-27] MEDS ORDERED: LIDOCAINE-MPF 1%, 5ML ONE (00:31)
[2018-03-27] MEDS ORDERED: PROMETHAZINE 25 MG/ML, 1ML IM PRN (01:30)
[2018-03-27] MEDS ORDERED: ONDANSETRON ODT 4 MG PO PRN (01:30)
[2018-03-27] MEDS ORDERED: ERGOCALCIFEROL 50,000 UNIT CAPSULE PO SCH (01:30)
[2018-03-27] MEDS ORDERED: hydrALAzine 20 MG/ML, 1ML IVPush PRN (01:30)
[2018-03-27] MEDS ORDERED: ONDANSETRON 2MG/ML, 2ML IVPush PRN (01:30)
[2018-03-27] MEDS ORDERED: GABAPENTIN 300 MG CAPSULE PO PRN (01:30)
[2018-03-27] MEDS ORDERED: METHOCARBAMOL 500 MG TABLET PO PRN (01:30)
[2018-03-27] MEDS ORDERED: LABETALOL 5MG/ML, 20ML IVPush PRN (01:30)
[2018-03-27] MEDS ORDERED: DOCUSATE 100 MG CAPSULE PO PRN (01:30)
[2018-03-27 01:46] VITALS: BP 218/91
[2018-03-27 01:54] LABS: FREE T4 (FREE THYROXINE) 0.9 ng/dL (0.76-1.46); THYROID STIMULATING HORMONE 2.64 mIU/L (0.358-3.740)
[2018-03-27 02:00] VITALS: BP 197/70
[2018-03-27 02:09] LABS: HEMOGLOBIN A1C 7.5 % (4.2-6.3)
[2018-03-27 02:34] VITALS: BP 209/74
[2018-03-27 02:50] VITALS: BP 215/88
[2018-03-27] MEDS: HYDROmorphone 2 MG/ML, 1ML IVPush PRN ×2 (03:14→08:30)
[2018-03-27] MEDS ORDERED: INSULIN LISPRO 100 UNITS/ML, PEN SQ-INSULIN SCH (07:00)
[2018-03-27] MEDS: SEVELAMER HCL 800MG TABLET PO SCH ×2 (08:16→12:00)
[2018-03-27] MEDS ORDERED: TEMPLATE NON-FORMULARY MED. (Escitalopram Oxalate** (Lexapro**) 20 MG) HOMEMEDPO SCH (09:00)
[2018-03-27] MEDS ORDERED: ISOSORBIDE MONONITRATE ER 30 MG TABLET PO SCH (09:00)
[2018-03-27] MEDS ORDERED: GOLYTELY 4,000ML ORAL.SOL PO ONE (10:00)
[2018-03-27 14:06] LABS: TROPONIN I 0.028 ng/mL (0.000-0.045)
[2018-03-27] MEDS ORDERED: ATORVASTATIN 10 MG TABLET PO SCH (21:00)
[2018-03-27] MEDS ORDERED: PANTOPRAZOLE 80 MG in SODIUM CHLORIDE 0.9% 100 ML IV SCH (23:38)
== END 2018-03-27 15:05 | disposition left against medical advice (07) | DRG 377 ==
LOC: ED 23:38 → EDIP 23:45 → CCU 03-27 02:22
PROVIDERS: ADMIT Internal Medicine; ATTEND Internal Medicine
PROC: 30233N1 Transfusion of Nonautologous Red Blood Cells into Peripheral Vein, Percutaneous Approach (ICD-10-PCS; principal; 2018-03-27)
PROC: 02H633Z Insertion of Infusion Device into Right Atrium, Percutaneous Approach (ICD-10-PCS; 2018-03-27)
PROC: B244ZZZ Ultrasonography of Right Heart (ICD-10-PCS; 2018-03-27)
PROC: 5A1D70Z Performance of Urinary Filtration, Intermittent, Less than 6 Hours Per Day (ICD-10-PCS; 2018-03-27)
DX: K92.2 Gastrointestinal hemorrhage, unspecified (principal); N18.6 End stage renal disease; D62 Acute posthemorrhagic anemia; E44.1 Mild protein-calorie malnutrition; I13.2 Hypertensive heart and chronic kidney disease with heart failure and with stage 5 chronic kidney disease, or end stage renal disease; L97.429 Non-pressure chronic ulcer of left heel and midfoot with unspecified severity; F68.10 Factitious disorder imposed on self, unspecified; D63.1 Anemia in chronic kidney disease; E11.22 Type 2 diabetes mellitus with diabetic chronic kidney disease; E11.51 Type 2 diabetes mellitus with diabetic peripheral angiopathy without gangrene; E11.621 Type 2 diabetes mellitus with foot ulcer; Z68.37 Body mass index [BMI] 37.0-37.9, adult; Z88.0 Allergy status to penicillin; Z88.8 Allergy status to other drugs, medicaments and biological substances; E78.00 Pure hypercholesterolemia, unspecified; E78.5 Hyperlipidemia, unspecified; F12.90 Cannabis use, unspecified, uncomplicated; F32.9 Major depressive disorder, single episode, unspecified; F41.9 Anxiety disorder, unspecified; I25.10 Atherosclerotic heart disease of native coronary artery without angina pectoris; I50.9 Heart failure, unspecified; N25.0 Renal osteodystrophy; Z79.01 Long term (current) use of anticoagulants; Z79.02 Long term (current) use of antithrombotics/antiplatelets; Z79.82 Long term (current) use of aspirin; Z80.3 Family history of malignant neoplasm of breast; Z82.49 Family history of ischemic heart disease and other diseases of the circulatory system; Z86.73 Personal history of transient ischemic attack (TIA), and cerebral infarction without residual deficits; Z87.440 Personal history of urinary (tract) infections; Z87.891 Personal history of nicotine dependence; Z90.710 Acquired absence of both cervix and uterus; Z91.19 Patient's noncompliance with other medical treatment and regimen; Z95.5 Presence of coronary angioplasty implant and graft; Z99.2 Dependence on renal dialysis; Z53.21 Procedure and treatment not carried out due to patient leaving prior to being seen by health care provider; Z86.718 Personal history of other venous thrombosis and embolism
CPT/HCPCS: 36415; 36556; 71045; 80053; 82962; 83036; 83735; 83880; 84439; 84443; 84484; 85014; 85018; 85025; 85610; 85730; 86677; 86704; 86706; 86803; 86850; 86900; 86923; 87081; 87340; 93005; 96365; 96375; 99291; J1170; C9113; P9016

== ENCOUNTER 2018-04-16 21:48 | Inpatient (IN) | payer MEDICARE, MEDICAID ==
[~2018-04-16] VITALS: Ht 157.5 cm; Wt 106.0 kg
[~2018-04-16 21:48] MED LIST changes: +LOSA50TA14 PO; -LOSA50TA7 PO; +SIMV5TAB14 PO; -SIMV5TAB5 PO
--- NOTE | 2018-04-16 22:10 | NUR ---
BIB BY [facility] FROM HOME WITH C/O SUBSTERNAL CP THAT STARTED 3 DAYS AGO, +NAUSEA, +SOB, PT STATED PAIN IS WORSE WITH ACTIVITY. PT TOOK 10 NITRO PRIOR TO [facility] ARRIVAL, RECIEVED 324 ASPIRIN PER [facility], PT REFUSES IV SITE. MONITORS APPLIED, SIDERAILS UP X2, CALL LIGHT WITHIN REACH. PA AT BEDSIDE FOR EVAL
[2018-04-16] MEDS ORDERED: ASPIRIN 81 MG TABLET CHEW PO ONE (22:30)
--- NOTE | 2018-04-16 23:20 | NUR ---
PT RESTING ON GURNEY, DENIES PAIN OR NEEDS AT THIS TIME, CALL LIGHT WITHIN REACH, FAMLY AT BEDSIDE. AWAITING LAB RESULTS AT THIS TIME.
[2018-04-16 23:23] LABS: MEAN CORPUSCULAR HEMOGLOBIN 30.9 pg (27.0-34.8); MEAN CORPUSCULAR HGB CONC 34.2 g/dL (32.4-35.8); MEAN CORPUSCULAR VOLUME 90.5 fL (80-100); MEAN PLATELET VOLUME 7.3 fL (7.4-10.4); PLATELET COUNT 311 x10^3/uL (130-400); RED BLOOD COUNT 2.52 x10^6/uL (3.82-5.3); RED CELL DISTRIBUTION WIDTH 13.5 % (9.6-15.2)
[2018-04-16] MEDS ORDERED: ATOR10TA9 PO (23:25)
[2018-04-16] MEDS ORDERED: LOSA25TA25 PO (23:25)
[2018-04-16] MEDS ORDERED: TRAM100T33 PO (23:25)
[2018-04-16] MEDS ORDERED: TEMA15CA6 PO (23:26)
[2018-04-16 23:29] LABS: ALANINE AMINOTRANSFERASE 12 U/L (12-78); ALBUMIN 3.4 g/dL (3.4-5.0); ANION GAP 9 mmol/L (5-15); CALCIUM 8.2 mg/dL (8.5-10.1); CHLORIDE 110 mmol/L (98-107)
[2018-04-16 23:34] LABS: ALKALINE PHOSPHATASE 119 U/L (45-117); BILIRUBIN,TOTAL 0.3 mg/dL (0.2-1.0); CREATININE 5.56 mg/dL (0.55-1.02); TOTAL PROTEIN 6.6 g/dL (6.4-8.2); TROPONIN I < 0.015 ng/mL (0.000-0.045)
[2018-04-16 23:52] LABS: BASOPHILS # (AUTO) 0.05 x10^3/uL (0-0.1); BASOPHILS % (AUTO) 1 % (0-1); EOSINOPHILS # (AUTO) 0.56 x10^3/uL (0-0.4); EOSINOPHILS % (AUTO) 9 % (1-7); LYMPHOCYTES # (AUTO) 1.21 x10^3/uL (1-3.4); LYMPHOCYTES % (AUTO) 20 % (22-44); MD SCAN; MONOCYTES % (AUTO) 5 % (2-9); NEUTROPHILS # (AUTO) 4.05 x10^3/uL (1.8-6.8); NEUTROPHILS % (AUTO) 66 % (42-75)
[2018-04-17] VITALS (8 sets, daily range): BP systolic 135–189; BP diastolic 67–89
[2018-04-17] MEDS ORDERED: ONDANSETRON ODT 4 MG PO PRN (01:00)
[2018-04-17] MEDS ORDERED: ACETAMINOPHEN 325 MG TABLET PO PRN (01:00)
[2018-04-17] MEDS ORDERED: POLYETHYLENE GLYCOL 17 GM PACKET PO PRN (01:00)
[2018-04-17] MEDS ORDERED: TEMPLATE NON-FORMULARY MED. (Insulin Lispro** (Humalog**) 0 UNITS) SQ-INSULIN SCH (01:00)
[2018-04-17] MEDS ORDERED: ERGOCALCIFEROL 50,000 UNIT CAPSULE PO SCH (01:00)
[2018-04-17] MEDS ORDERED: NITROGLYCERIN 0.4 MG BOTTLE (25 TABS) SL PRN (01:00)
[2018-04-17] MEDS ORDERED: BISACODYL 10 MG SUPP PR PRN (01:00)
--- NOTE | 2018-04-17 01:32 | NUR ---
pt resting calmly,blood consent signed and placed in pt's chart, 1st unit prbc's checked by 2 rn's and started.
[2018-04-17 01:45] LABS: HEMOGLOBIN A1C 6.9 % (4.2-6.3)
[2018-04-17] MEDS: hydrALAzine 20 MG/ML, 1ML IV PRN (02:34)
[2018-04-17] MEDS: INSULIN HUMULIN 70/30, 3ML PEN SQ-INSULIN SCH ×2 (03:25→21:27)
[2018-04-17] MEDS ORDERED: TEMAZEPAM 15 MG CAPSULE ONE (03:48)
[2018-04-17] MEDS: TEMAZEPAM 15 MG CAPSULE PO SCH ×2 (03:49→23:13)
[2018-04-17] MEDS: INSULIN LISPRO 100 UNITS/ML, PEN SQ-INSULIN SCH ×4 (07:00→21:26)
[2018-04-17] MEDS ORDERED: SEVELAMER HCL 800MG TABLET PO SCH (08:00)
[2018-04-17] MEDS: SENNA/DOCUSATE TABLET PO SCH (09:00)
[2018-04-17] MEDS ORDERED: TRAMADOL HCL 100 MG PO SCH (09:00)
[2018-04-17] MEDS: SODIUM CHLORIDE FLUSH 10ML SYR IVF SCH ×2 (09:35→21:24)
[2018-04-17] MEDS: SEVELAMER CARBONATE 800MG TAB PO SCH ×3 (09:35→17:00)
[2018-04-17] MEDS: CLOPIDOGREL 75 MG TABLET PO SCH (09:35)
[2018-04-17] MEDS: ISOSORBIDE MONONITRATE ER 30 MG TABLET PO SCH (09:35)
[2018-04-17] MEDS: ASPIRIN 81 MG TABLET EC PO SCH (09:37)
[2018-04-17] MEDS: LOSARTAN 25MG TABLET PO SCH (11:29)
[2018-04-17] MEDS ORDERED: ARANESP 60 MCG/ML **ESRD SQ SCH (11:30)
[2018-04-17 15:37] LABS: BASOPHILS # (AUTO) 0.13 x10^3/uL (0-0.1); BASOPHILS % (AUTO) 2 % (0-1); EOSINOPHILS # (AUTO) 0.31 x10^3/uL (0-0.4); EOSINOPHILS % (AUTO) 5 % (1-7); LYMPHOCYTES # (AUTO) 1.56 x10^3/uL (1-3.4); LYMPHOCYTES % (AUTO) 27 % (22-44); MD NO; MEAN CORPUSCULAR HEMOGLOBIN 30.6 pg (27.0-34.8); MEAN CORPUSCULAR HGB CONC 33.2 g/dL (32.4-35.8); MEAN CORPUSCULAR VOLUME 92.1 fL (80-100); MEAN PLATELET VOLUME 7.5 fL (7.4-10.4); MONOCYTES % (AUTO) 5 % (2-9); NEUTROPHILS # (AUTO) 3.46 x10^3/uL (1.8-6.8); NEUTROPHILS % (AUTO) 60 % (42-75); PLATELET COUNT 293 x10^3/uL (130-400); RED BLOOD COUNT 2.67 x10^6/uL (3.82-5.3); RED CELL DISTRIBUTION WIDTH 13.7 % (9.6-15.2)
[2018-04-17 15:47] LABS: ALANINE AMINOTRANSFERASE 12 U/L (12-78); ALBUMIN 3.7 g/dL (3.4-5.0); ANION GAP 6 mmol/L (5-15); CALCIUM 8.3 mg/dL (8.5-10.1); CHLORIDE 110 mmol/L (98-107); CREATININE 3.42 mg/dL (0.55-1.02)
[2018-04-17 15:51] LABS: ALKALINE PHOSPHATASE 109 U/L (45-117); BILIRUBIN,TOTAL 0.6 mg/dL (0.2-1.0); TROPONIN I 0.077 ng/mL (0.000-0.045)
[2018-04-17] MEDS ORDERED: MAALOX/HYOSCYAMINE/LIDOCAINE 45 ML BTL PO ONE (16:30)
[2018-04-17] MEDS: LIDODERM 5% PATCH TD SCH (16:30)
[2018-04-17] MEDS: NITROGLYCERIN 0.1 MG/HR PATCH TD SCH (17:00)
[2018-04-17 19:21] LABS: TROPONIN I 0.093 ng/mL (0.000-0.045)
[2018-04-17] MEDS: ATORVASTATIN 10 MG TABLET PO SCH (21:24)
[2018-04-17] MEDS: CITALOPRAM 10 MG TABLET PO SCH (21:35)
[2018-04-18 02:30] VITALS: BP 127/73
[2018-04-18 06:12] LABS: TROPONIN I 0.078 ng/mL (0.000-0.045)
[2018-04-18 06:17] LABS: MEAN CORPUSCULAR HEMOGLOBIN 31.9 pg (27.0-34.8); MEAN CORPUSCULAR HGB CONC 34.6 g/dL (32.4-35.8); MEAN CORPUSCULAR VOLUME 92.3 fL (80-100); RED BLOOD COUNT 2.48 x10^6/uL (3.82-5.3); RED CELL DISTRIBUTION WIDTH 13.9 % (9.6-15.2)
[2018-04-18 06:22] LABS: CHLORIDE 109 mmol/L (98-107)
[2018-04-18 06:31] LABS: ANION GAP 11 mmol/L (5-15); CALCIUM 8.1 mg/dL (8.5-10.1); CREATININE 3.86 mg/dL (0.55-1.02)
[2018-04-18 06:45] LABS: BASOPHILS # (AUTO) 0.24 x10^3/uL (0-0.1); BASOPHILS % (AUTO) 3 % (0-1); EOSINOPHILS # (AUTO) 0.89 x10^3/uL (0-0.4); EOSINOPHILS % (AUTO) 10 % (1-7); LYMPHOCYTES % (AUTO) 32 % (22-44); MD SCAN; MEAN PLATELET VOLUME 7.6 fL (7.4-10.4); MONOCYTES % (AUTO) 7 % (2-9); NEUTROPHILS # (AUTO) 4.35 x10^3/uL (1.8-6.8); NEUTROPHILS % (AUTO) 48 % (42-75); PLATELET COUNT 244 x10^3/uL (130-400)
[2018-04-18] MEDS: INSULIN LISPRO 100 UNITS/ML, PEN SQ-INSULIN SCH ×4 (07:00→20:17)
[2018-04-18 08:12] VITALS: BP 148/78
[2018-04-18] MEDS: SENNA/DOCUSATE TABLET PO SCH (09:00)
[2018-04-18] MEDS: SEVELAMER CARBONATE 800MG TAB PO SCH ×3 (09:00→16:21)
[2018-04-18] MEDS: SODIUM CHLORIDE FLUSH 10ML SYR IVF SCH ×2 (09:00→20:16)
[2018-04-18] MEDS: ISOSORBIDE MONONITRATE ER 30 MG TABLET PO SCH (09:01)
[2018-04-18] MEDS: CLOPIDOGREL 75 MG TABLET PO SCH (09:01)
[2018-04-18] MEDS: CITALOPRAM 10 MG TABLET PO SCH (09:01)
[2018-04-18] MEDS: LOSARTAN 25MG TABLET PO SCH (09:01)
[2018-04-18] MEDS: ASPIRIN 81 MG TABLET EC PO SCH (09:01)
[2018-04-18 14:50] VITALS: BP 132/74
[2018-04-18] MEDS: LIDODERM 5% PATCH TD SCH (16:21)
[2018-04-18] MEDS: NITROGLYCERIN 0.1 MG/HR PATCH TD SCH (16:21)
[2018-04-18 18:19] VITALS: BP 148/78
[2018-04-18] MEDS: METOPROLOL TARTRATE 50 MG TABLET PO SCH (18:20)
[2018-04-18] MEDS: TEMAZEPAM 15 MG CAPSULE PO SCH (20:16)
[2018-04-18] MEDS: ATORVASTATIN 10 MG TABLET PO SCH (20:17)
[2018-04-18] MEDS: INSULIN HUMULIN 70/30, 3ML PEN SQ-INSULIN SCH (20:18)
[2018-04-19 02:31] VITALS: BP 137/79
[2018-04-19 05:05] VITALS: BP 142/64
[2018-04-19] MEDS: METOPROLOL TARTRATE 50 MG TABLET PO SCH ×2 (05:07→16:48)
[2018-04-19 06:45] LABS: MEAN CORPUSCULAR HEMOGLOBIN 31.1 pg (27.0-34.8); MEAN CORPUSCULAR HGB CONC 33.7 g/dL (32.4-35.8); MEAN CORPUSCULAR VOLUME 92.3 fL (80-100); MEAN PLATELET VOLUME 7.7 fL (7.4-10.4); PLATELET COUNT 284 x10^3/uL (130-400); RED BLOOD COUNT 2.43 x10^6/uL (3.82-5.3); RED CELL DISTRIBUTION WIDTH 13.5 % (9.6-15.2)
[2018-04-19 06:55] LABS: ANION GAP 10 mmol/L (5-15); CALCIUM 8.2 mg/dL (8.5-10.1); CHLORIDE 110 mmol/L (98-107); CREATININE 4.65 mg/dL (0.55-1.02)
[2018-04-19 07:32] VITALS: BP 138/70
[2018-04-19 07:45] LABS: BASOPHILS # (AUTO) 0.08 x10^3/uL (0-0.1); BASOPHILS % (AUTO) 1 % (0-1); EOSINOPHILS # (AUTO) 0.72 x10^3/uL (0-0.4); EOSINOPHILS % (AUTO) 11 % (1-7); LYMPHOCYTES # (AUTO) 2.11 x10^3/uL (1-3.4); LYMPHOCYTES % (AUTO) 33 % (22-44); MD SCAN; MONOCYTES # (AUTO) 0.44 x10^3/uL (0.2-0.8); MONOCYTES % (AUTO) 7 % (2-9); NEUTROPHILS # (AUTO) 3.06 x10^3/uL (1.8-6.8); NEUTROPHILS % (AUTO) 48 % (42-75)
[2018-04-19] MEDS: SEVELAMER CARBONATE 800MG TAB PO SCH ×3 (08:00→16:48)
[2018-04-19] MEDS: INSULIN LISPRO 100 UNITS/ML, PEN SQ-INSULIN SCH ×4 (08:25→21:16)
[2018-04-19] MEDS: CLOPIDOGREL 75 MG TABLET PO SCH (09:45)
[2018-04-19] MEDS: ASPIRIN 81 MG TABLET EC PO SCH (09:45)
[2018-04-19] MEDS: LOSARTAN 25MG TABLET PO SCH (09:46)
[2018-04-19] MEDS: SENNA/DOCUSATE TABLET PO SCH (09:47)
[2018-04-19] MEDS: ISOSORBIDE MONONITRATE ER 30 MG TABLET PO SCH (09:47)
[2018-04-19] MEDS: SODIUM CHLORIDE FLUSH 10ML SYR IVF SCH ×2 (09:47→21:12)
[2018-04-19] MEDS: CITALOPRAM 10 MG TABLET PO SCH ×2 (10:50→10:53)
[2018-04-19] MEDS ORDERED: VERAPAMIL 2.5 MG/ML, 2ML ONE (13:42)
[2018-04-19] MEDS ORDERED: BIVALIRUDIN 250 MG ONE (13:42)
[2018-04-19] MEDS ORDERED: MIDAZOLAM 1 MG/ML, 5ML ONE (13:42)
[2018-04-19] MEDS ORDERED: DIPHENHYDRAMINE 50 MG/ML, 1ML ONE (13:42)
[2018-04-19] MEDS ORDERED: FLUMAZENIL 0.1 MG/1 ML, 5ML ONE (14:13)
[2018-04-19 16:05] VITALS: BP 106/49
[2018-04-19] MEDS: ESCITALOPRAM 20 MG PO SCH (16:48)
[2018-04-19] MEDS: LIDODERM 5% PATCH TD SCH (16:49)
[2018-04-19] MEDS: NITROGLYCERIN 0.1 MG/HR PATCH TD SCH (16:49)
[2018-04-19 19:40] VITALS: BP 111/49
[2018-04-19] MEDS: INSULIN HUMULIN 70/30, 3ML PEN SQ-INSULIN SCH (21:00)
[2018-04-19] MEDS: ATORVASTATIN 10 MG TABLET PO SCH (21:12)
[2018-04-19] MEDS: TEMAZEPAM 15 MG CAPSULE PO SCH (21:12)
[2018-04-20 02:00] VITALS: BP 132/76
[2018-04-20 05:51] LABS: PLATELET COUNT 296 x10^3/uL (130-400)
[2018-04-20] MEDS: METOPROLOL TARTRATE 50 MG TABLET PO SCH ×2 (06:00→18:00)
[2018-04-20 06:07] LABS: CHLORIDE 105 mmol/L (98-107)
[2018-04-20 06:09] LABS: MEAN CORPUSCULAR HEMOGLOBIN 31.8 pg (27.0-34.8); MEAN CORPUSCULAR HGB CONC 34.4 g/dL (32.4-35.8); MEAN CORPUSCULAR VOLUME 92.5 fL (80-100); MEAN PLATELET VOLUME 8.1 fL (7.4-10.4); RED BLOOD COUNT 2.48 x10^6/uL (3.82-5.3); RED CELL DISTRIBUTION WIDTH 13.8 % (9.6-15.2)
[2018-04-20 06:15] LABS: ALANINE AMINOTRANSFERASE 11 U/L (12-78); ALBUMIN 3.2 g/dL (3.4-5.0); ALKALINE PHOSPHATASE 146 U/L (45-117); ANION GAP 9 mmol/L (5-15); BILIRUBIN,TOTAL 0.4 mg/dL (0.2-1.0); CALCIUM 7.5 mg/dL (8.5-10.1); CREATININE 4.11 mg/dL (0.55-1.02); TOTAL PROTEIN 6.2 g/dL (6.4-8.2)
[2018-04-20 08:29] VITALS: BP 141/65
[2018-04-20 08:37] LABS: MD YES
[2018-04-20 08:40] LABS: BAND#(MANUAL) 0.08 x10^3/uL; BANDS%(MANUAL) 1 % (0-7); EOS#(MANUAL) 0.66 x10^3/uL (0.0-0.4); EOS% (MANUAL) 8 % (1-7); LYMPH#(MANUAL) 1.49 x10^3/uL (1-3.4); LYMPHS% (MANUAL) 18 % (22-44); MONOS#(MANUAL) 0.33 x10^3/uL (0.3-2.7); MONOS% (MANUAL) 4 % (2-9); SEG#(MANUAL) 5.73 x10^3/uL (1.8-6.8); SEGS% (MANUAL) 69 % (42-75)
[2018-04-20 08:41] LABS: <PLATELET ESTIMATE> ADEQUATE; <PLT MORPHOLOGY> NORMAL PLT MORPH; ANISOCYTOSIS 1+; POLYCHROMASIA 1+
[2018-04-20] MEDS: SODIUM CHLORIDE FLUSH 10ML SYR IVF SCH ×2 (09:00→20:00)
[2018-04-20] MEDS: ESCITALOPRAM 20 MG PO SCH (09:00)
[2018-04-20] MEDS: SENNA/DOCUSATE TABLET PO SCH (09:00)
[2018-04-20] MEDS: INSULIN LISPRO 100 UNITS/ML, PEN SQ-INSULIN SCH ×4 (09:31→20:06)
[2018-04-20] MEDS: ASPIRIN 81 MG TABLET EC PO SCH (09:33)
[2018-04-20] MEDS: CLOPIDOGREL 75 MG TABLET PO SCH (09:33)
[2018-04-20] MEDS: ISOSORBIDE MONONITRATE ER 30 MG TABLET PO SCH (09:34)
[2018-04-20] MEDS: SEVELAMER CARBONATE 800MG TAB PO SCH ×3 (09:35→18:01)
[2018-04-20] MEDS: LOSARTAN 25MG TABLET PO SCH (09:35)
[2018-04-20] MEDS: ISOSORBIDE MONONITRATE ER 60 MG TABLET PO SCH (10:00)
[2018-04-20] MEDS ORDERED: ISOSORBIDE MONONITRATE ER 30 MG TABLET ONE (10:31)
[2018-04-20] MEDS ORDERED: ISOSORBIDE MONONITRATE ER 30 MG TABLET PO ONE (11:00)
[2018-04-20 13:45] VITALS: BP 111/67
[2018-04-20] MEDS: LIDODERM 5% PATCH TD SCH (16:26)
[2018-04-20] MEDS ORDERED: NITROGLYCERIN 0.2 MG/HR PATCH TD SCH (17:00)
[2018-04-20] MEDS: ATORVASTATIN 10 MG TABLET PO SCH (19:59)
[2018-04-20] MEDS: INSULIN HUMULIN 70/30, 3ML PEN SQ-INSULIN SCH (20:06)
[2018-04-20] MEDS: TEMAZEPAM 15 MG CAPSULE PO SCH (21:15)
[2018-04-20 21:20] VITALS: BP 184/85
[2018-04-20] MEDS: hydrALAzine 20 MG/ML, 1ML IV PRN (21:20)
[2018-04-21 02:04] VITALS: BP 119/67
[2018-04-21 05:43] LABS: MEAN CORPUSCULAR HEMOGLOBIN 31.6 pg (27.0-34.8); MEAN CORPUSCULAR HGB CONC 34.2 g/dL (32.4-35.8); MEAN CORPUSCULAR VOLUME 92.4 fL (80-100); MEAN PLATELET VOLUME 7.9 fL (7.4-10.4); PLATELET COUNT 308 x10^3/uL (130-400); RED BLOOD COUNT 2.38 x10^6/uL (3.82-5.3); RED CELL DISTRIBUTION WIDTH 13.6 % (9.6-15.2)
[2018-04-21 05:46] LABS: ANION GAP 11 mmol/L (5-15); CALCIUM 7.9 mg/dL (8.5-10.1); CHLORIDE 109 mmol/L (98-107); CREATININE 4.92 mg/dL (0.55-1.02)
[2018-04-21 06:04] LABS: BASOPHILS # (AUTO) 0.04 x10^3/uL (0-0.1); BASOPHILS % (AUTO) 1 % (0-1); EOSINOPHILS # (AUTO) 0.86 x10^3/uL (0-0.4); EOSINOPHILS % (AUTO) 10 % (1-7); LYMPHOCYTES # (AUTO) 2.28 x10^3/uL (1-3.4); LYMPHOCYTES % (AUTO) 25 % (22-44); MD SCAN; MONOCYTES # (AUTO) 0.55 x10^3/uL (0.2-0.8); MONOCYTES % (AUTO) 6 % (2-9); NEUTROPHILS # (AUTO) 5.27 x10^3/uL (1.8-6.8); NEUTROPHILS % (AUTO) 59 % (42-75)
[2018-04-21] MEDS: METOPROLOL TARTRATE 50 MG TABLET PO SCH ×2 (06:22→17:55)
[2018-04-21] MEDS: INSULIN LISPRO 100 UNITS/ML, PEN SQ-INSULIN SCH ×4 (07:00→21:00)
[2018-04-21 07:10] VITALS: BP 122/72
[2018-04-21] MEDS: SEVELAMER CARBONATE 800MG TAB PO SCH ×3 (07:14→17:00)
[2018-04-21] MEDS: LOSARTAN 25MG TABLET PO SCH (08:34)
[2018-04-21] MEDS: ISOSORBIDE MONONITRATE ER 60 MG TABLET PO SCH (08:34)
[2018-04-21] MEDS: ESCITALOPRAM 20 MG PO SCH (08:34)
[2018-04-21] MEDS: ASPIRIN 81 MG TABLET EC PO SCH (08:34)
[2018-04-21] MEDS: CLOPIDOGREL 75 MG TABLET PO SCH (08:34)
[2018-04-21] MEDS: CALCITRIOL 0.25 MCG CAPSULE PO SCH (08:34)
[2018-04-21] MEDS: SENNA/DOCUSATE TABLET PO SCH (08:35)
[2018-04-21] MEDS: SODIUM CHLORIDE FLUSH 10ML SYR IVF SCH ×2 (08:35→21:48)
[2018-04-21] MEDS ORDERED: ACETAMINOPHEN 325 MG TABLET PO ONE (13:00)
[2018-04-21 14:06] VITALS: BP 126/74
[2018-04-21] MEDS ORDERED: VERAPAMIL 2.5 MG/ML, 2ML ONE (14:15)
[2018-04-21] MEDS ORDERED: BIVALIRUDIN 250 MG ONE (14:15)
[2018-04-21] MEDS ORDERED: HEPARIN 1,000 UNITS/ML, 10ML ONE (14:15)
[2018-04-21] MEDS ORDERED: TICAGRELOR 90 MG TABLET ONE (14:15)
[2018-04-21] MEDS ORDERED: PROPOFOL 50 ML ONE (14:34)
[2018-04-21] MEDS ORDERED: ADENOSINE 6 MG/2 ML ONE (15:37)
[2018-04-21] MEDS: LIDODERM 5% PATCH TD SCH (16:30)
[2018-04-21] MEDS ORDERED: HYDROmorphone 2 MG/ML, 1ML ONE (17:31)
[2018-04-21] MEDS: HYDROmorphone 2 MG/ML, 1ML IVPush PRN ×4 (17:32→22:54)
[2018-04-21 18:46] VITALS: BP 140/21
[2018-04-21 19:01] VITALS: BP 123/50
[2018-04-21 19:02] VITALS: BP 123/50
[2018-04-21] MEDS: TEMAZEPAM 15 MG CAPSULE PO SCH (21:44)
[2018-04-21] MEDS: ATORVASTATIN 10 MG TABLET PO SCH (21:44)
[2018-04-21] MEDS: INSULIN HUMULIN 70/30, 3ML PEN SQ-INSULIN SCH (22:04)
[2018-04-22] MEDS ORDERED: HYDROmorphone 1 MG/ML, 1ML IV PRN (02:00)
[2018-04-22] MEDS ORDERED: HYDROmorphone 2 MG/ML, 1ML ONE (02:22)
[2018-04-22 04:31] LABS: BASOPHILS # (AUTO) 0.07 x10^3/uL (0-0.1); BASOPHILS % (AUTO) 1 % (0-1); EOSINOPHILS # (AUTO) 0.74 x10^3/uL (0-0.4); EOSINOPHILS % (AUTO) 9 % (1-7); LYMPHOCYTES % (AUTO) 22 % (22-44); MD NO; MEAN CORPUSCULAR HEMOGLOBIN 31.9 pg (27.0-34.8); MEAN CORPUSCULAR HGB CONC 34.9 g/dL (32.4-35.8); MEAN CORPUSCULAR VOLUME 91.6 fL (80-100); MONOCYTES # (AUTO) 0.65 x10^3/uL (0.2-0.8); MONOCYTES % (AUTO) 8 % (2-9); NEUTROPHILS # (AUTO) 5.05 x10^3/uL (1.8-6.8); NEUTROPHILS % (AUTO) 61 % (42-75); PLATELET COUNT 307 x10^3/uL (130-400); RED BLOOD COUNT 2.68 x10^6/uL (3.82-5.3); RED CELL DISTRIBUTION WIDTH 14.2 % (9.6-15.2)
[2018-04-22 04:43] LABS: ALBUMIN 3.4 g/dL (3.4-5.0); ANION GAP 5 mmol/L (5-15); CALCIUM 8.1 mg/dL (8.5-10.1); CHLORIDE 108 mmol/L (98-107)
[2018-04-22 04:47] LABS: ALANINE AMINOTRANSFERASE 15 U/L (12-78); ALKALINE PHOSPHATASE 109 U/L (45-117); BILIRUBIN,TOTAL 0.7 mg/dL (0.2-1.0); CREATININE 3.85 mg/dL (0.55-1.02); TOTAL PROTEIN 6.7 g/dL (6.4-8.2)
[2018-04-22] MEDS: METOPROLOL TARTRATE 50 MG TABLET PO SCH (06:00)
[2018-04-22] MEDS: INSULIN LISPRO 100 UNITS/ML, PEN SQ-INSULIN SCH (06:01)
[2018-04-22] MEDS: ESCITALOPRAM 20 MG PO SCH (08:00)
[2018-04-22] MEDS: ISOSORBIDE MONONITRATE ER 60 MG TABLET PO SCH (08:00)
[2018-04-22] MEDS: CALCITRIOL 0.25 MCG CAPSULE PO SCH (08:00)
[2018-04-22] MEDS: SEVELAMER CARBONATE 800MG TAB PO SCH (08:00)
[2018-04-22] MEDS: ASPIRIN 81 MG TABLET EC PO SCH (08:00)
[2018-04-22] MEDS: CLOPIDOGREL 75 MG TABLET PO SCH (08:00)
[2018-04-22] MEDS: SENNA/DOCUSATE TABLET PO SCH (08:00)
[2018-04-22] MEDS: LOSARTAN 25MG TABLET PO SCH (08:00)
== END 2018-04-22 08:39 | disposition left against medical advice (07) | DRG 248 ==
LOC: ED 23:05 → EDIP 04-17 00:21 → 5SO 04-17 01:53 → CCU 04-21 16:36
PROVIDERS: ADMIT Internal Medicine; ATTEND Internal Medicine
PROC: 30233N1 Transfusion of Nonautologous Red Blood Cells into Peripheral Vein, Percutaneous Approach (ICD-10-PCS; 2018-04-17)
PROC: 5A1D70Z Performance of Urinary Filtration, Intermittent, Less than 6 Hours Per Day (ICD-10-PCS; 2018-04-17)
PROC: 5A1D70Z Performance of Urinary Filtration, Intermittent, Less than 6 Hours Per Day (ICD-10-PCS; 2018-04-19)
PROC: B41J1ZZ Fluoroscopy of Other Lower Arteries using Low Osmolar Contrast (ICD-10-PCS; 2018-04-19)
PROC: 4A023N7 Measurement of Cardiac Sampling and Pressure, Left Heart, Percutaneous Approach (ICD-10-PCS; 2018-04-21)
PROC: B2111ZZ Fluoroscopy of Multiple Coronary Arteries using Low Osmolar Contrast (ICD-10-PCS; 2018-04-21)
PROC: B2151ZZ Fluoroscopy of Left Heart using Low Osmolar Contrast (ICD-10-PCS; 2018-04-21)
PROC: 5A1D70Z Performance of Urinary Filtration, Intermittent, Less than 6 Hours Per Day (ICD-10-PCS; 2018-04-21)
PROC: 02703ZZ Dilation of Coronary Artery, One Artery, Percutaneous Approach (ICD-10-PCS; 2018-04-21)
PROC: 02703DZ Dilation of Coronary Artery, One Artery with Intraluminal Device, Percutaneous Approach (ICD-10-PCS; principal; 2018-04-21 16:30)
DX: I25.10 Atherosclerotic heart disease of native coronary artery without angina pectoris (principal); N18.6 End stage renal disease; I13.2 Hypertensive heart and chronic kidney disease with heart failure and with stage 5 chronic kidney disease, or end stage renal disease; I16.1 Hypertensive emergency; D62 Acute posthemorrhagic anemia; I82.C21 Chronic embolism and thrombosis of right internal jugular vein; Z53.21 Procedure and treatment not carried out due to patient leaving prior to being seen by health care provider; D63.1 Anemia in chronic kidney disease; E11.22 Type 2 diabetes mellitus with diabetic chronic kidney disease; E78.5 Hyperlipidemia, unspecified; E83.51 Hypocalcemia; F41.0 Panic disorder [episodic paroxysmal anxiety]; F41.1 Generalized anxiety disorder; I35.8 Other nonrheumatic aortic valve disorders; I50.9 Heart failure, unspecified; N25.0 Renal osteodystrophy; Z79.4 Long term (current) use of insulin; Z80.3 Family history of malignant neoplasm of breast; Z82.49 Family history of ischemic heart disease and other diseases of the circulatory system; Z88.5 Allergy status to narcotic agent; Z88.0 Allergy status to penicillin; Z88.8 Allergy status to other drugs, medicaments and biological substances; Z99.2 Dependence on renal dialysis; Z86.718 Personal history of other venous thrombosis and embolism; Z86.73 Personal history of transient ischemic attack (TIA), and cerebral infarction without residual deficits; Z87.442 Personal history of urinary calculi; Z87.891 Personal history of nicotine dependence; Z90.710 Acquired absence of both cervix and uterus; Z91.19 Patient's noncompliance with other medical treatment and regimen
CPT/HCPCS: 36415; 36430; 71045; 74018; 80048; 80053; 82306; 82728; 82962; 83036; 83540; 83550; 83970; 84100; 84466; 84484; 85025; 86704; 86706; 86850; 86900; 86923; 87081; 87340; 92928; 93005; 93306; 93454; 93458; 93970; 99285; C1760; C1769; C1876; C1894; G0378; J0153; J0583; J0882; J1170; J1644; J2250; J2704; C1725; C1887; J0360; J1200; J1815; P9016; Q9967